=== PATIENT | female | born 1975 | race Caucasian/White ===

== ENCOUNTER 2017-01-01 14:21 | Emergency (ER) | payer MEDICARE, MEDICAID ==
[2017-01-01] MEDS ORDERED: ASPIRIN 81 MG CHEW TABLET As Ordered ONE (14:53)
[2017-01-01 15:26] LABS: BASO % 0.6 % (0.0-1.0); EOS % 0.7 % (0.0-3.0); LARGE UNSTAINED CELL # 0.1 K/mm3 (0.0-0.4); LARGE UNSTAINED CELL % 1.6 % (0.0-4.0); LYMPH # 1.6 K/mm3 (1.5-4.5); LYMPH % 23.3 % (24.0-44.0); MEAN CORPUSCULAR VOLUME 88.1 fl (80.0-96.0); MONO # 0.3 K/mm3 (0.0-0.8); MONO % 4.6 % (0.0-5.0); NEUTROPHILS # 4.8 K/mm3 (1.8-7.7); NEUTROPHILS % 69.2 % (36.0-66.0); PLATELET COUNT, AUTOMATED 235 k/mm3 (150-450); RED CELL DISTRIBUTION WIDTH 12.6 % (11.5-14.5)
--- NOTE | 2017-01-01 15:36 | REP ---
PA and lateral chest: Comparison is 10/08/2012. The lung riley are clear. The cardiac size is normal The tere, mediastinum, and bony thorax are unremarkable. Impression: Negative PA and lateral chest. There is no interval change Signed by Serafin Sanchez MD 01/01/2017 03:26 P
[2017-01-01 15:40] LABS: ANION GAP 9 MEQ/L (8-16); BLOOD UREA NITROGEN 10 MG/DL (7-18); CALCIUM LEVEL 8.9 MG/DL (8.5-10.1); CARBON DIOXIDE LEVEL 26 MEQ/L (21-32); CHLORIDE LEVEL 106 MEQ/L (98-107); CREATININE FOR GFR 0.88 MG/DL (0.55-1.02); GLOMERULAR FILTRATION RATE > 60.0 (>58); GLUCOSE, FASTING 92 MG/DL (70-105); POTASSIUM SERUM 3.8 MEQ/L (3.5-5.1); SODIUM LEVEL 141 MEQ/L (136-145)
[2017-01-01] MEDS ORDERED: ISOVUE-370 76% 100ML VIAL (Q9967) As Ordered ONE (15:52)
--- NOTE | 2017-01-01 16:35 | REP ---
CT pulmonary angiogram: With IV contrast. History: Chest pain. Comparison studies: Comparison is made with today's chest x-ray. Contrast dose: 75 cc's of Isovue [address] technique: Helical scanning is acquired and overlapping 1.5 mm and contiguous 3 mm axial images are reformatted. In addition, a 3-D work station is deployed to generate thick slab maximum intensity projection images in sagittal and coronal imaging projections. CT pulmonary angiographic findings: There is good opacification of the pulmonary arterial tree and there is no CT evidence of pulmonary embolism. Maximum intensity projection images show no filling defect or vessel cutoff sign to suggest a pulmonary thrombus. The thoracic aorta is normal in course and caliber and homogeneous in contrast enhancement. There is no evidence of pleural or pericardial effusion. No hilar or mediastinal mass or adenopathy is observed. The lung riley are clear. There are clips in the gallbladder fossa post cholecystectomy. The visualized upper abdominal structures are otherwise unremarkable. No extrathoracic mass or adenopathy is seen. Bone window settings show mild degenerative changes in the thoracic spine. No bony destructive lesion is seen. Impression: Negative CT pulmonary angiogram. No CT evidence of pulmonary embolus. Signed by Buddy Aranda MD 01/01/2017 05:09 P
[2017-01-01] MEDS ORDERED: MORPHINE 4 MG/ML 1ML SYRINGE As Ordered ONE (17:31)
[2017-01-01] MEDS ORDERED: ONDANSETRON 4MG/2ML VIAL (J2405) As Ordered ONE ×2 (17:31→23:08)
[2017-01-01] MEDS ORDERED: GI COCKTAIL 50ML BTL(HYOSCYAMINE/MAALOX/LIDOCAINE VISCOUS)(1:3:1) As Ordered ONE (18:27)
[2017-01-01] MEDS ORDERED: PANTOPRAZOLE 40MG INJ (PROTONIX) (C9113) As Ordered ONE (18:30)
[2017-01-01 18:47] LABS: ALBUMIN/GLOBULIN RATIO 1.14 (1.00-1.93); ALKALINE PHOSPHATASE 49 U/L (45-117); ALT/SGPT 34 U/L (12-78); AST/SGOT 18 U/L (15-37); BILIRUBIN,DIRECT 0.1 MG/DL (0.0-0.2); BILIRUBIN,TOTAL 0.5 MG/DL (0.2-1.0); TOTAL PROTEIN 7.5 GM/DL (6.4-8.2)
--- NOTE | 2017-01-01 21:51 | EDDOCDS ---
Physician Documentation [facility] Name: Freda To Age: 41 yrs Sex: Female : 1975 Arrival Date: 01/01/2017 Time: 14:21 Bed 12 Private MD: No Pcp Disposition: 01/01/17 21:37 Discharged to Home/Self Care. Impression: Chest pain, unspecified. - Condition is Stable. - Discharge Instructions: Nonspecific Chest Pain. - Medication Reconciliation, Local Pharmacy Hours form. - Follow up: Murali Londono MD; When: 2 - 3 days; Reason: Recheck today's complaints. Follow up: [facility] - Adults; When: 2 - 3 days; Reason: Recheck today's complaints. - Problem is new. - Symptoms have improved. - Notes: You were seen in the ED for chest pain. Bloodwork along with EKG of the heart, chest Xray and CT scan of the chest showed no acute findings. We have discussed the case with Cardiology as well. As you are feeling better you may return home to follow up with your primary doctor as well as Cardiology for further evaluation - please call the offices (see the numbers below) to arrange to be seen in the morning.
Return to the ED for any return of chest pain, trouble breathing, lightheadedness, loss of consciousness or any other concerns. Historical: - Allergies: Vicodin; Codeine Sulfate; - Home Meds: 1. none - PMHx: Lupus; Rheumatoid Arthritis; Fibromyalgia; Hypertension; Asthma; Depression; Bipolar disorder; Anxiety; - PSHx: Cesearean Section; Hysterectomy; Appendectomy; Cholecystectomy; - Social history: Smoking status: Patient uses tobacco products, heavy tobacco smoker. No barriers to communication noted, The patient speaks fluent [place], Speaks appropriately for age. - Family history: No immediate family members are acutely ill. - : The pt / caregiver states he / she is not on anticoagulants. Home medication list is obtained from the patient. - Exposure Risk Screening:: None identified. Vital Signs: 01/01 14:24 BP 157 / 105 RA Sitting (auto/reg); Pulse 89; Resp 18; Temp 98.7(O); Pulse Ox 98% on jrd R/A; Weight 87.09 kg / 192 lbs (R); Height 5 ft. 3 in. (160.02 cm) (R); Pain 8/10; 14:53 Pulse 82 MON; Pulse Ox 97% ; mb9 14:53 BP 133 / 81 (auto/); mb9 15:08 BP 132 / 85 (auto/); mb9 15:09 Pulse 80 MON; Pulse Ox 99% ; mb9 15:22 Pulse 82 MON; Pulse Ox 99% ; mb9 15:23 BP 143 / 91 (auto/); mb9 15:29 Pulse 94 MON; Pulse Ox 98% ; mb9 15:51 BP 140 / 82 (auto/); mb9 15:53 Pulse 80 MON; Pulse Ox 98% ; mb9 15:53 BP 135 / 77 (auto/); mb9 15:58 Pulse 78 MON; Pulse Ox 98% ; lf1 16:08 BP 133 / 87 (auto/); lf1 16:09 Pulse 86 MON; Resp 18; Pulse Ox 99% on R/A; Pain 8/10; lf1 16:23 BP 134 / 86 (auto/); lf1 16:24 Pulse 82 MON; Resp 18; Pulse Ox 99% on R/A; Pain 8/10; lf1 16:30 BP 118 / 68 (auto/); lf1 16:31 Pulse 86 MON; Resp 18; Pulse Ox 97% on R/A; Pain 7/10; lf1 16:38 BP 118 / 67 (auto/); mb9 16:39 Pulse 84 MON; Pulse Ox 96% ; mb9 16:40 Pulse 78 MON; Pulse Ox 96% ; mb9 16:40 BP 125 / 73 (auto/); Pain 7/10; mb9 16:48 BP 114 / 65 (auto/); Pain 6/10; mb9 16:49 Pulse 78 MON; Pulse Ox 97% ; mb9 16:53 BP 121 / 66 (auto/); mb9 16:54 Pulse 76 MON; Pulse Ox 98% ; mb9 17:08 Pulse 82 MON; Pulse Ox 98% ; mb9 17:08 BP 103 / 59 (auto/); mb9 17:23 BP 100 / 56 (auto/); mb9 17:24 Pulse 72 MON; Pulse Ox 98% ; mb9 17:38 Pulse 86 MON; Pulse Ox 97% ; mb9 17:38 BP 111 / 78 (auto/); mb9 17:53 BP 120 / 82 (auto/); mb9 17:54 Pulse 72 MON; Pulse Ox 99% ; mb9 18:08 BP 129 / 73 (auto/); mb9 18:09 Pulse 70 MON; Pulse Ox 94% ; mb9 18:12 Pain 4/10; mb9 18:23 BP 171 / 91 (auto/); kas2 18:23 Pulse 70 MON; Pulse Ox 97% ; kas2 19:02 BP 156 / 71 (auto/); kas2 19:04 Pulse 66 MON; Pulse Ox 98% ; kas2 19:04 Pain 4/10; mb9 19:32 BP 134 / 75 (auto/); kas2 19:32 Pulse 68 MON; Pulse Ox 97% ; kas2 19:40 Resp 18; Temp 97.9(O); kas2 20:02 BP 121 / 63 (auto/); kas2 20:02 Pulse 72 MON; Pulse Ox 96% ; kas2 21:07 BP 129 / 65 (auto/); kas2 21:07 Pulse 64 MON; Pulse Ox 97% ; kas2 21:43 BP 156 / 89 (auto/); kas2 21:43 Pulse 68 MON; Pulse Ox 95% ; kas2 21:48 Resp 20; Temp 97.9; kas2 14:24 Body Mass Index 34.01 (87.09 kg, 160.02 cm) jrd 16:31 After first Nitro - 2nd dose given lf1 MDM: 14:33 ECG WITH READING ER PHYS+CARDIAG ordered. EDMS 14:44 Aspirin Chewable Tablet 324 mg PO once ordered. br1 14:44 Bearingizer/Pulse Ox/q 30 min VS ordered. br1 14:44 IV Saline Lock ordered. br1 14:44 Rhythm Strip to chart ordered. br1 14:44 Undress patient appropriately for examination ordered. br1 14:44 Chest, 2 View (pa\E\lat) Ordered. EDMS 14:44 Basic Metabolic Profile Ordered. EDMS 14:44 CBC with Diff Ordered. EDMS 14:44 Cardiac Injury Profile Ordered. EDMS 14:44 Troponin Ordered. EDMS 14:46 -Influenza A&B Rapid Antigen - Nose Ordered. EDMS 15:47 CBC with Diff Reviewed. br1 15:47 Basic Metabolic Profile Reviewed. br1 15:47 Cardiac Injury Profile Reviewed. br1 15:47 Troponin Reviewed. br1 15:47 -Influenza A&B Rapid Antigen - Nose Reviewed. br1 15:48 CT Chest Angio R/O PE Ordered. EDMS 16:18 Nitrostat 0.4 mg Sublingual every 5 minutes; hold if SBP<90mmHg.Document Pain Score br1 Response to Each Dose x3 ordered. 17:08 morphine 4 mg IVP once ordered. br1 17:08 Financial registration complete. gjb 17:08 Ondansetron 4 mg IVP once ordered. br1 17:21 [facility] Payment Agreement was scanned into [employer] and attached to record. gjb 18:25 GI Cocktail - (Alum-Mag Hydroxide-Simeth 30 ml, Lidocaine 10 ml, Hyoscyamine 10 ml) PO br1 once; Pre-mixed 50mL unit dose ordered. 18:26 Admit to ED Observation status ordered. br1 18:28 pantoprazole 40 mg IV at bolus once ordered. br1 18:28 Repeat EKG (put time details section) ordered. br1 18:28 Redraw CIP &Troponin (put time in details section) ordered. br1 18:34 Redraw CIP &Troponin (put time in details section) complete. lbd 18:34 Repeat EKG (put time details section) complete. lbd 18:37 ECG WITH READING ER PHYS ordered. EDMS 18:38 CARDIAC MARKER PANEL Ordered. EDMS 20:31 Admit to ED Observation status complete. kas2 21:11 Basic Metabolic Profile Reviewed. br1 21:11 Cardiac Injury Profile Reviewed. br1 21:11 Troponin Reviewed. br1 21:11 LIVER PROFILE Reviewed. br1 21:11 LIPASE Reviewed. br1 21:11 CARDIAC MARKER PANEL Reviewed. br1 21:11 Chest, 2 View (pa\E\lat) Reviewed. br1 21:11 CT Chest Angio R/O PE Reviewed. br1 Administered Medications: 15:09 Drug: Aspirin 324 mg [aspirin 81 mg chewable tablet (4 tabs)] Route: PO; mb9 16:24 Drug: Nitrostat 0.4 mg [Nitrostat 0.4 mg sublingual tablet (1 tabs)] Route: Sublingual; lf1 16:32 Drug: Nitrostat 0.4 mg [Nitrostat 0.4 mg sublingual tablet (1 tabs)] Route: Sublingual; lf1 16:43 Drug: Nitrostat 0.4 mg [Nitrostat 0.4 mg sublingual tablet (1 tabs)] Route: Sublingual; mb9 17:39 Drug: morphine 4 mg [morphine 4 mg/mL intravenous cartridge (1 mL)] Route: IVP; Site: mb9 left antecubital; 18:12 Follow up: Pain 4/10 Adult; Response: Pain is decreased mb9 17:39 Drug: Ondansetron 4 mg [ondansetron HCl 2 mg/mL intravenous solution (2 mL)] Route: mb9 IVP; Site: left antecubital; 18:12 Follow up: Response: Nausea is resolved mb9 18:37 Drug: GI Cocktail - (Alum-Mag Hydroxide-Simeth Suspension 225 mg-200 mg-25 mg/5 mL 30 mb9 ml, Lidocaine Liquid 2 % 10 ml, Hyoscyamine Liquid 10 ml) Route: PO; 19:04 Follow up: Pain 4/10 Adult; Response: Pain is decreased mb9 18:37 Drug: pantoprazole 40 mg [pantoprazole 40 mg intravenous solution] Route: IV; Rate: mb9 bolus; Site: left antecubital; Signatures: Dispatcher [employer] EDMS Coco Chung, Production Leader Unit lbd Elba CarvalhoRN RN ck1 Hemanth Hsu MD MD br1 Sanchez OkeefeRN RN mb9 Faith Grissom Kim, RN RN kas2 Mireille Lyons RN lf1 The chart was reviewed and I authenticate all verbal orders and agree with the evaluation and treatment provided.Corrections: (The following items were deleted from the chart) 18:31 18:29 LIVER PROFILE+LAB ordered. EDMS EDMS 18:32 18:29 LIPASE+LAB ordered. EDMS EDMS Attachments: 17:21 [facility] Payment [facility]
--- NOTE | 2017-01-01 21:51 | EDDOCDS ---
Nurse's Notes [facility] Name: Freda To Age: 41 yrs Sex: Female : 1975 Arrival Date: 01/01/2017 Time: 14:21 Bed 12 Private MD: No Pcp Diagnosis: Chest pain, unspecified Presentation: 01/01 14:28 Presenting complaint: Patient states: Chest pain with SOB since last night 2130. Adult ck1 Sepsis Screening: The patient does not have new or worsening altered mentation. Patient's respiratory rate is less than 22. Systolic blood pressure is greater than 100. Patient has a qSOFA score of 0- Negative Sepsis Screen. Suicide/Homicide risk assessment- the patient denies having any suicidal and/or homicidal ideations and does not present with any other emotional, behavioral or mental health complaints. Status: Patient is not a service counselor or dependent. Transition of care: patient was not received from another setting of care. 14:28 Acuity: NATALIA Level 3 ck1 14:28 Method Of Arrival: Walkin/Carried/Asstd ck1 Triage Assessment: 14:31 General: Appears in no apparent distress, comfortable, Behavior is appropriate for age, ck1 cooperative. Pain: Location: chest Pain currently is 8 out of 10 on a pain scale. HIV screening NA for this visit Offered previously. Respiratory: Onset: The symptoms/episode began/occurred yesterday, Respiratory effort is unlabored, Respiratory pattern is regular, symmetrical. GI: Denies nausea. Derm: Skin is intact, is healthy with good turgor, Skin is pink, warm & dry. Musculoskeletal: Circulation, motion, and sensation intact. Historical: - Allergies: Vicodin; Codeine Sulfate; - Home Meds: 1. none - PMHx: Lupus; Rheumatoid Arthritis; Fibromyalgia; Hypertension; Asthma; Depression; Bipolar disorder; Anxiety; - PSHx: Cesearean Section; Hysterectomy; Appendectomy; Cholecystectomy; - Social history: Smoking status: Patient uses tobacco products, heavy tobacco smoker. No barriers to communication noted, The patient speaks fluent Ukrainian, Speaks appropriately for age. - Family history: No immediate family members are acutely ill. - : The pt / caregiver states he / she is not on anticoagulants. Home medication list is obtained from the patient. - Exposure Risk Screening:: None identified. Screenin:48 Screening information is obtained from the patient. Fall risk: No risks identified. kas2 Assistance ADL's: requires no assistance with activities of daily living. Abuse/DV Screen: The patient / caregiver reports he/she is: not in a situation that causes fear, pain or injury. Nutritional screening: No deficits noted. Advance Directives: Currently, there is no health care proxy. There is no active DNR order. There is no living will. There is no Power of Typing Bookkeeper. home support is adequate. Assessment: 15:09 General: Appears in no apparent distress, Behavior is appropriate for age, cooperative. mb9 Cardiovascular: Heart tones S1 S2 present Rhythm is sinus rhythm. Respiratory: Airway is patent Breath sounds are clear bilaterally. 15:55 Reassessment: Patient appears in no apparent distress at this time. General: Appears in mb9 no apparent distress, Behavior is appropriate for age, cooperative. Respiratory: No deficits noted. Airway is patent Respiratory effort is even, unlabored, Breath sounds are clear bilaterally. 16:14 General: Appears obese, uncomfortable, Behavior is cooperative. Pain: Location: chest lf1 Pain currently is 8 out of 10 on a pain scale. Pain does not radiate. Quality of pain is described as aching. Neurological: Level of Consciousness is awake, alert. Respiratory: Respiratory effort is even, unlabored. GI: Denies nausea, vomiting. Derm: Skin is normal. 17:39 Reassessment: Patient appears in no apparent distress at this time. Patient states mb9 symptoms have not improved. Adult Sepsis Screening: The patient does not have new or worsening altered mentation. Patient's respiratory rate is less than 22. Systolic blood pressure is greater than 100. Patient has a qSOFA score of 0- Negative Sepsis Screen. General: Appears in no apparent distress, Behavior is appropriate for age, cooperative. Pain: Location: chest Pain currently is 6 out of 10 on a pain scale. Cardiovascular: Rhythm is sinus rhythm No ectopy. Chest pain is described as Pain is 6 out of 10 on a pain scale. quality is ache is located in anterior chest wall. Respiratory: Airway is patent Respiratory effort is even, unlabored, Breath sounds with wheezes expiratory bilaterally. 17:42 Respiratory: Reports cough that is. mb9 18:17 Pain: Location: epigastric area Pain currently is 6 out of 10 on a pain scale. Quality mb9 of pain is described as burning. Cardiovascular:. 19:16 General: Verbal report given by Ryan Covarrubias RN. Assumed care of patient at this time.. kas2 19:34 General: Appears in no apparent distress, uncomfortable, well nourished, well groomed, kas2 Behavior is appropriate for age, cooperative. Pain: Location: abdomen and epigastric area and chest Pain currently is 4 out of 10 on a pain scale. Pain does not radiate. Quality of pain is described as burning. Neurological: Level of Consciousness is awake, alert, Oriented to person, place, time. Cardiovascular: Capillary refill < 3 seconds Heart tones S1 S2 present Rhythm is sinus rhythm No ectopy. Chest pain is described as Pain is 4 out of 10 on a pain scale. is located in anterior chest wall. Respiratory: No deficits noted. Airway is patent Respiratory effort is even, unlabored, Respiratory pattern is regular, symmetrical, Breath sounds are clear bilaterally. GI: Denies nausea, vomiting. Derm: Skin is intact, Skin is dry, Skin is pink, warm & dry. normal, Skin temperature is warm. Injury Description: No known injury. 21:05 General: Patient laying in bed watching TV. No complaints at this time. Appears kas2 comfortable. VSS. Call springer within reach. Will continue to monitor.. 21:47 General: Appears in no apparent distress, comfortable, Behavior is appropriate for age, kas2 cooperative. Pain: Denies pain. Neurological: Level of Consciousness is awake, alert, Oriented to person, place, time. Cardiovascular: Rhythm is sinus rhythm No ectopy. Respiratory: Airway is patent Respiratory effort is even, unlabored, Respiratory pattern is regular, symmetrical. Derm: Skin is intact, Skin is dry, Skin is pink, warm & dry. Skin temperature is warm. Vital Signs: 14:24 BP 157 / 105 RA Sitting (auto/reg); Pulse 89; Resp 18; Temp 98.7(O); Pulse Ox 98% on jrd R/A; Weight 87.09 kg (R); Height 5 ft. 3 in. (160.02 cm) (R); Pain 8/10; 14:53 Pulse 82 MON; Pulse Ox 97% ; mb9 14:53 BP 133 / 81 (auto/); mb9 15:08 BP 132 / 85 (auto/); mb9 15:09 Pulse 80 MON; Pulse Ox 99% ; mb9 15:22 Pulse 82 MON; Pulse Ox 99% ; mb9 15:23 BP 143 / 91 (auto/); mb9 15:29 Pulse 94 MON; Pulse Ox 98% ; mb9 15:51 BP 140 / 82 (auto/); mb9 15:53 Pulse 80 MON; Pulse Ox 98% ; mb9 15:53 BP 135 / 77 (auto/); mb9 15:58 Pulse 78 MON; Pulse Ox 98% ; lf1 16:08 BP 133 / 87 (auto/); lf1 16:09 Pulse 86 MON; Resp 18; Pulse Ox 99% on R/A; Pain 8/10; lf1 16:23 BP 134 / 86 (auto/); lf1 16:24 Pulse 82 MON; Resp 18; Pulse Ox 99% on R/A; Pain 8/10; lf1 16:30 BP 118 / 68 (auto/); lf1 16:31 Pulse 86 MON; Resp 18; Pulse Ox 97% on R/A; Pain 7/10; lf1 16:38 BP 118 / 67 (auto/); mb9 16:39 Pulse 84 MON; Pulse Ox 96% ; mb9 16:40 Pulse 78 MON; Pulse Ox 96% ; mb9 16:40 BP 125 / 73 (auto/); Pain 7/10; mb9 16:48 BP 114 / 65 (auto/); Pain 6/10; mb9 16:49 Pulse 78 MON; Pulse Ox 97% ; mb9 16:53 BP 121 / 66 (auto/); mb9 16:54 Pulse 76 MON; Pulse Ox 98% ; mb9 17:08 Pulse 82 MON; Pulse Ox 98% ; mb9 17:08 BP 103 / 59 (auto/); mb9 17:23 BP 100 / 56 (auto/); mb9 17:24 Pulse 72 MON; Pulse Ox 98% ; mb9 17:38 Pulse 86 MON; Pulse Ox 97% ; mb9 17:38 BP 111 / 78 (auto/); mb9 17:53 BP 120 / 82 (auto/); mb9 17:54 Pulse 72 MON; Pulse Ox 99% ; mb9 18:08 BP 129 / 73 (auto/); mb9 18:09 Pulse 70 MON; Pulse Ox 94% ; mb9 18:12 Pain 4/10; mb9 18:23 BP 171 / 91 (auto/); kas2 18:23 Pulse 70 MON; Pulse Ox 97% ; kas2 19:02 BP 156 / 71 (auto/); kas2 19:04 Pulse 66 MON; Pulse Ox 98% ; kas2 19:04 Pain 4/10; mb9 19:32 BP 134 / 75 (auto/); kas2 19:32 Pulse 68 MON; Pulse Ox 97% ; kas2 19:40 Resp 18; Temp 97.9(O); kas2 20:02 BP 121 / 63 (auto/); kas2 20:02 Pulse 72 MON; Pulse Ox 96% ; kas2 21:07 BP 129 / 65 (auto/); kas2 21:07 Pulse 64 MON; Pulse Ox 97% ; kas2 21:43 BP 156 / 89 (auto/); kas2 21:43 Pulse 68 MON; Pulse Ox 95% ; kas2 21:48 Resp 20; Temp 97.9; kas2 14:24 Body Mass Index 34.01 (87.09 kg, 160.02 cm) jrd 16:31 After first Nitro - 2nd dose given lf1 Vitals: 14:24 Log In Time: January 01, 2017 at 14:12. jrd 14:25 RN notified that patient meets Red Flag criteria. jrd ED Course: 14:22 Patient visited by Alejandro Guzman PCA. jrd 14:22 Patient moved to Waiting jrd 14:23 No Pcp is Private Physician. jrd 14:25 Patient visited by Alejandro Guzman PCA. jrd 14:26 Patient visited by Alejandro Guzman PCA. jrd 14:29 Triage Initiated ck1 14:32 Patient moved to 12 ck1 14:34 Hemanth Hsu MD is Attending Physician. br1 14:37 EKG done. (by ED staff). Reviewed by Hemanth Hsu MD. cmb 14:41 Pt greeted and oriented to ED. Patient advised of names of staff involved in care, cmb location of call springer, wait times and NPO status. Patient has correct armband on for positive identification. Placed in gown. Bed in low position. Call light in reach. Side rails up X2. corporate physical security supervisor on. Pulse ox on. NIBP on. 14:42 Patient visited by Orquidea Swanson. cmb 14:43 Patient visited by Hemanth Hsu MD. br1 15:08 -Influenza A&B Rapid Antigen - Nose Sent. mb9 15:08 Basic Metabolic Profile Sent. mb9 15:09 CBC with Diff Sent. mb9 15:09 Cardiac Injury Profile Sent. mb9 15:09 Troponin Sent. mb9 15:57 Patient visited by Sanchez Okeefe RN. mb9 16:15 Chest, 2 View (pa\E\lat) Returned. EDMS 16:17 Patient visited by Mireille Lyons RN. lf1 17:16 CT Chest Angio R/O PE Returned. EDMS 17:20 Patient visited by Hemanth Hsu MD. br1 17:21 [facility] Payment Agreement was scanned into [employer] and attached to record. gjb 18:17 Patient visited by Sanchez Okeefe RN. mb9 18:32 Patient visited by Hemanth Hsu MD. br1 18:58 Sowmya Fields RN is Primary Nurse. kas2 19:19 Patient visited by Sowmya Fields RN. kas2 19:40 Patient visited by Sowmya Fields RN. kas2 20:17 Patient visited by Sowmya Fields RN. kas2 20:17 Patient visited by Sowmya Fields RN. kas2 20:31 Patient visited by Sowmya Fields RN. kas2 20:31 CARDIAC MARKER PANEL Sent. kas2 20:31 Labs drawn. (by ED staff). Sent per order to lab. kas2 21:05 Patient visited by Sowmya Fields RN. kas2 21:07 Patient visited by Sowmya Fields RN. kas2 21:32 Patient visited by Hemanth Hsu MD. br1 21:37 Murali Londono MD is Referral Physician. br1 21:37 [facility] is Referral Physician. br1 21:47 Discontinued IV bleeding controlled, pressure dressing applied, No redness/swelling at [facility] site. No procedures done that require assistance. 21:49 The patient / caregiver is instructed regarding the plan of care and ED course. [facility] Administered Medications: 15:09 Drug: Aspirin 324 mg [aspirin 81 mg chewable tablet (4 tabs)] Route: PO; mb9 16:24 Drug: Nitrostat 0.4 mg [Nitrostat 0.4 mg sublingual tablet (1 tabs)] Route: Sublingual; lf1 16:32 Drug: Nitrostat 0.4 mg [Nitrostat 0.4 mg sublingual tablet (1 tabs)] Route: Sublingual; lf1 16:43 Drug: Nitrostat 0.4 mg [Nitrostat 0.4 mg sublingual tablet (1 tabs)] Route: Sublingual; mb9 17:39 Drug: morphine 4 mg [morphine 4 mg/mL intravenous cartridge (1 mL)] Route: IVP; Site: mb9 left antecubital; 18:12 Follow up: Pain 4/10 Adult; Response: Pain is decreased mb9 17:39 Drug: Ondansetron 4 mg [ondansetron HCl 2 mg/mL intravenous solution (2 mL)] Route: mb9 IVP; Site: left antecubital; 18:12 Follow up: Response: Nausea is resolved mb9 18:37 Drug: GI Cocktail - (Alum-Mag Hydroxide-Simeth Suspension 225 mg-200 mg-25 mg/5 mL 30 mb9 ml, Lidocaine Liquid 2 % 10 ml, Hyoscyamine Liquid 10 ml) Route: PO; 19:04 Follow up: Pain 4/10 Adult; Response: Pain is decreased mb9 18:37 Drug: pantoprazole 40 mg [pantoprazole 40 mg intravenous solution] Route: IV; Rate: mb9 bolus; Site: left antecubital; Order Results: Lab Order: Basic Metabolic Profile; SPEC'M 01/01/17 15:06 Test: GLUCOSE, FASTING; Value: 92; Range: 70-105; Units: MG/DL; Status: F Test: BLOOD UREA NITROGEN; Value: 10; Range: 7-18; Units: MG/DL; Status: F Test: CREATININE FOR GFR; Value: 0.88; Range: 0.55-1.02; Units: MG/DL; Status: F Test: GLOMERULAR FILTRATION RATE; Value: > 60.0; Range: >58; Status: F Test: SODIUM LEVEL; Value: 141; Range: 136-145; Units: MEQ/L; Status: F Test: POTASSIUM SERUM; Value: 3.8; Range: 3.5-5.1; Units: MEQ/L; Status: F Test: CHLORIDE LEVEL; Value: 106; Range: 98-107; Units: MEQ/L; Status: F Test: CARBON DIOXIDE LEVEL; Value: 26; Range: 21-32; Units: MEQ/L; Status: F Test: ANION GAP; Value: 9; Range: 8-16; Units: MEQ/L; Status: F Test: CALCIUM LEVEL; Value: 8.9; Range: 8.5-10.1; Units: MG/DL; Status: F Test Note: ; Units are mL/min/1.73 m2 Chronic Kidney Disease Staging per NKF: Stage I & II GFR >=60 Normal to Mildly Decreased Stage III GFR 30-59 Moderately Decreased Stage IV GFR 15-29 Severely Decreased Stage V GFR <15 Very Little GFR Left ESRD GFR <15 on RADIO ELECTRONICS TECHNICIAN Lab Order: CBC with Diff; SPEC'M 01/01/17 15:06 Test: WHITE BLOOD COUNT; Value: 7.0; Range: 4.0-10.0; Units: K/mm3; Status: F Test: RED BLOOD COUNT; Value: 4.83; Range: 4.00-5.40; Units: M/mm3; Status: F Test: HEMOGLOBIN; Value: 14.5; Range: 12.0-16.0; Units: g/dl; Status: F Test: HEMATOCRIT; Value: 42.6; Range: 36.0-47.0; Units: %; Status: F Test: MEAN CORPUSCULAR VOLUME; Value: 88.1; Range: 80.0-96.0; Units: fl; Status: F Test: MEAN CORPUSCULAR HEMOGLOBIN; Value: 30.0; Range: 27.0-33.0; Units: pg; Status: F Test: MEAN CORPUSCULAR HGB CONC; Value: 34.0; Range: 32.0-36.5; Units: g/dl; Status: F Test: RED CELL DISTRIBUTION WIDTH; Value: 12.6; Range: 11.5-14.5; Units: %; Status: F Test: PLATELET COUNT, AUTOMATED; Value: 235; Range: 150-450; Units: k/mm3; Status: F Test: NEUTROPHILS %; Value: 69.2; Range: 36.0-66.0; Abnormal: Above high normal; Units: %; Status: F Test: LYMPH %; Value: 23.3; Range: 24.0-44.0; Abnormal: Below low normal; Units: %; Status: F Test: MONO %; Value: 4.6; Range: 0.0-5.0; Units: %; Status: F Test: EOS %; Value: 0.7; Range: 0.0-3.0; Units: %; Status: F Test: BASO %; Value: 0.6; Range: 0.0-1.0; Units: %; Status: F Test: LARGE UNSTAINED CELL %; Value: 1.6; Range: 0.0-4.0; Units: %; Status: F Test: NEUTROPHILS #; Value: 4.8; Range: 1.8-7.7; Units: K/mm3; Status: F Test: LYMPH #; Value: 1.6; Range: 1.5-4.5; Units: K/mm3; Status: F Test: MONO #; Value: 0.3; Range: 0.0-0.8; Units: K/mm3; Status: F Test: EOS #; Value: 0.0; Range: 0.0-0.50; Units: K/mm3; Status: F Test: BASO #; Value: 0.0; Range: 0.0-0.2; Units: K/mm3; Status: F Test: LARGE UNSTAINED CELL #; Value: 0.1; Range: 0.0-0.4; Units: K/mm3; Status: F Lab Order: Cardiac Injury Profile; SPEC'M 01/01/17 15:06 Test: CPK CREATINE PHOSPHOKINASE; Value: 59; Range: 26-192; Units: U/L; Status: F Test: CK-MB VALUE MASS; Value: 1.0; Range: 0.0-3.6; Units: NG/ML; Status: F Test: MB/CK RELATIVE INDEX; Value: 1.69; Range: < OR =4; Status: F Test Note: ; DIAGNOSIS CRITERIA MMB ng/ml Relative Index (RI) NON-AMI < or = 5 N/A VELASQUEZ ZONE > 5 < or = 4 AMI > 5 > 4 Lab Order: Troponin; SPEC'M 01/01/17 15:06 Test: TROPONIN I; Value: < 0.02; Range: < 0.10; Units: NG/ML; Status: F Test Note: ; Troponin I Reference Interval for Siemens [place] LOCI: 99th Percentile= 0.00-0.045 ng/ml Risk Stratification: <= 0.10 ng/ml Decreased Risk for Adverse Clinical Events. 0.10-1.50 ng/ml Increased Risk for Adverse Clinical Events. Evaluation of additional criterion and/or repeat testing in 2-6 hours is suggested to rule out myocardial damage. >= 1.50 ng/ml Indicative of Myocardial Injury. Lab Order: -Influenza A&B Rapid Antigen - Nose; SPEC'M 01/01/17 15:06 Test: INFLUENZA A RAPID SCR by ICA; Value: INFLUENZA A RESULTS NEGATIVE; Status: F Test: INFLUENZA A RAPID SCR by ICA; Value: Comments:; Status: F Test: INFLUENZA B RAPID SCR by ICA; Value: INFLUENZA B RESULTS NEGATIVE; Status: F Test Note: ; The Influenza test is a direct rapid immunoassay for the qualitative detection of Influenza viral antigen. Cell culture (Viral Culture) testing should be considered to confirm NEGATIVE results and to assist in detecting other viruses that can provide similar clinical symptoms. Please contact the lab within 24 hours [phone] if confirmatory testing is desired. Lab Order: LIVER PROFILE; SPEC'M 01/01/17 15:06 Test: AST/SGOT; Value: 18; Range: 15-37; Units: U/L; Status: F Test: ALT/SGPT; Value: 34; Range: 12-78; Units: U/L; Status: F Test: ALKALINE PHOSPHATASE; Value: 49; Range: 45-117; Units: U/L; Status: F Test: BILIRUBIN,TOTAL; Value: 0.5; Range: 0.2-1.0; Units: MG/DL; Status: F Test: BILIRUBIN,DIRECT; Value: 0.1; Range: 0.0-0.2; Units: MG/DL; Status: F Test: TOTAL PROTEIN; Value: 7.5; Range: 6.4-8.2; Units: GM/DL; Status: F Test: ALBUMIN; Value: 4.0; Range: 3.2-5.2; Units: GM/DL; Status: F Test: ALBUMIN/GLOBULIN RATIO; Value: 1.14; Range: 1.00-1.93; Status: F Lab Order: LIPASE; SPEC'M 01/01/17 15:06 Test: LIPASE; Value: 215; Range: 73-393; Units: U/L; Status: F Lab Order: CARDIAC MARKER PANEL; SPEC'M 01/01/17 20:29 Test: CPK CREATINE PHOSPHOKINASE; Value: 58; Range: 26-192; Units: U/L; Status: F Test: CK-MB VALUE MASS; Value: 1.0; Range: 0.0-3.6; Units: NG/ML; Status: F Test: MB/CK RELATIVE INDEX; Value: 1.72; Range: < OR =4; Status: F Test: TROPONIN I; Value: < 0.02; Range: < 0.10; Units: NG/ML; Status: F Test Note: ; DIAGNOSIS CRITERIA MMB ng/ml Relative Index (RI) NON-AMI < or = 5 N/A VELASQUEZ ZONE > 5 < or = 4 AMI > 5 > 4 Radiology Order: Chest, 2 View (pa\E\lat) Test: Chest, 2 View (pa\E\lat) REASON FOR EXAMINATION: Chest Pain; PA and lateral chest:; ; Comparison is 10/08/2012.; ; The lung riley are clear. The cardiac size is normal; ; The tere, mediastinum, and bony thorax are unremarkable.; ; Impression:; ; Negative PA and lateral chest. There is no interval change; ; ; Signed by; Serafin Sanchez MD 01/01/2017 03:26 P; Radiology Order: CT Chest Angio R/O PE Test: CT Chest Angio R/O PE REASON FOR EXAMINATION: Chest Pain; CT pulmonary angiogram: With IV contrast.; ; History: Chest pain.; ; Comparison studies: Comparison is made with today's chest x-ray.; ; Contrast dose: 75 cc's of Isovue 370 are administered intravenously.; ; CT technique: Helical scanning is acquired and overlapping 1.5 mm and contiguous; 3 mm axial images are reformatted. In addition, a 3-D work station is deployed; to generate thick slab maximum intensity projection images in sagittal and; coronal imaging projections.; ; CT pulmonary angiographic findings: There is good opacification of the pulmonary; arterial tree and there is no CT evidence of pulmonary embolism. Maximum; intensity projection images show no filling defect or vessel cutoff sign to; suggest a pulmonary thrombus. The thoracic aorta is normal in course and caliber; and homogeneous in contrast enhancement.; ; There is no evidence of pleural or pericardial effusion. No hilar or mediastinal; mass or adenopathy is observed. The lung riley are clear. There are clips in; the gallbladder fossa post cholecystectomy. The visualized upper abdominal; structures are otherwise unremarkable. No extrathoracic mass or adenopathy is; seen. Bone window settings show mild degenerative changes in the thoracic spine.; No bony destructive lesion is seen.; ; Impression:; ; Negative CT pulmonary angiogram. No CT evidence of pulmonary embolus.; ; ; Signed by; Buddy Aranda MD 01/01/2017 05:09 P; Outcome: 17:05 Discharge ordered by Provider. br1 21:37 Discharge ordered by Provider. br1 21:49 Discharge Assessment: patient administered narcotics - yes. Pt provided with safe kas2 discharge. The following High Risk Discharge criteria are identified: None. Discharged to home ambulatory, with family. Condition: good Condition: stable Condition: improved. CT Study completed. Property :Personal belongings accompany Pt. 21:50 Patient left the ED. kas2 Signatures: Dispatcher [employer] EDMS Elba CarvalhoRN RN ck1 Mireille LyonsRN RN lf1 Hemanth Hsu MD MD br1 Orquidea Swanson Joseph, PCA PCA jrd Belles, Michael,RN RN mb9 Faith Grissom Kim, RN RN kas2 Corrections: (The following items were deleted from the chart) 18:12 18:11 Pain 4/10 Adult; Response: Pain is decreased mb9 mb9 MTDD
[2017-01-01] MEDS ORDERED: ACET50TAOT PO (23:32)
[2017-01-01] MEDS ORDERED: ALBU17IN INH (23:32)
[2017-01-02] MEDS ORDERED: HEPARIN SOD (PORCINE) 5000 UNITS/ML VIAL As Ordered ONE (09:50)
[2017-01-02] MEDS ORDERED: PANTOPRAZOLE 40MG TAB (PROTONIX) As Ordered ONE (09:50)
[2017-01-02] MEDS ORDERED: NICOTINE 21MG/24HR 1 EA TRANSDERMAL As Ordered ONE (09:50)
--- NOTE | 2017-01-03 08:57 | ECGEPIP ---
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
--- NOTE | 2017-01-03 09:03 | ECGEPIP ---
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
--- NOTE | 2017-01-03 22:50 | EDDOCDS ---
Nurse's Notes [facility] Name: Freda To Age: 41 yrs Sex: Female : 1975 Arrival Date: 01/01/2017 Time: 14:21 Bed 12 Private MD: No Pcp Diagnosis: Chest pain, unspecified Presentation: 01/01 14:28 Presenting complaint: Patient states: Chest pain with SOB since last night 2130. Adult ck1 Sepsis Screening: The patient does not have new or worsening altered mentation. Patient's respiratory rate is less than 22. Systolic blood pressure is greater than 100. Patient has a qSOFA score of 0- Negative Sepsis Screen. Suicide/Homicide risk assessment- the patient denies having any suicidal and/or homicidal ideations and does not present with any other emotional, behavioral or mental health complaints. 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 Transition of care: patient was not received from another setting of care. 14:28 Acuity: NATALIA Level 3 ck1 14:28 Method Of Arrival: Walkin/Carried/Asstd ck1 Triage Assessment: 14:31 General: Appears in no apparent distress, comfortable, Behavior is appropriate for age, ck1 cooperative. Pain: Location: chest Pain currently is 8 out of 10 on a pain scale. HIV screening NA for this visit Offered previously. Respiratory: Onset: The symptoms/episode began/occurred yesterday, Respiratory effort is unlabored, Respiratory pattern is regular, symmetrical. GI: Denies nausea. Derm: Skin is intact, is healthy with good turgor, Skin is pink, warm & dry. Musculoskeletal: Circulation, motion, and sensation intact. Historical: - Allergies: Vicodin; Codeine Sulfate; - Home Meds: 1. none - PMHx: Lupus; Rheumatoid Arthritis; Fibromyalgia; Hypertension; Asthma; Depression; Bipolar disorder; Anxiety; - PSHx: Cesearean Section; Hysterectomy; Appendectomy; Cholecystectomy; - Social history: Smoking status: Patient uses tobacco products, heavy tobacco smoker. No barriers to communication noted, The patient speaks fluent Mongolian, Speaks appropriately for age. - Family history: No immediate family members are acutely ill. - : The pt / caregiver states he / she is not on anticoagulants. Home medication list is obtained from the patient. - Exposure Risk Screening:: None identified. Screenin:48 Screening information is obtained from the patient. Fall risk: No risks identified. kas2 Assistance ADL's: requires no assistance with activities of daily living. Abuse/DV Screen: The patient / caregiver reports he/she is: not in a situation that causes fear, pain or injury. Nutritional screening: No deficits noted. Advance Directives: Currently, there is no health care proxy. There is no active DNR order. There is no living will. There is no Power of Waterproof Bag Sewer. home support is adequate. Assessment: 15:09 General: Appears in no apparent distress, Behavior is appropriate for age, cooperative. mb9 Cardiovascular: Heart tones S1 S2 present Rhythm is sinus rhythm. Respiratory: Airway is patent Breath sounds are clear bilaterally. 15:55 Reassessment: Patient appears in no apparent distress at this time. General: Appears in mb9 no apparent distress, Behavior is appropriate for age, cooperative. Respiratory: No deficits noted. Airway is patent Respiratory effort is even, unlabored, Breath sounds are clear bilaterally. 16:14 General: Appears obese, uncomfortable, Behavior is cooperative. Pain: Location: chest lf1 Pain currently is 8 out of 10 on a pain scale. Pain does not radiate. Quality of pain is described as aching. Neurological: Level of Consciousness is awake, alert. Respiratory: Respiratory effort is even, unlabored. GI: Denies nausea, vomiting. Derm: Skin is normal. 17:39 Reassessment: Patient appears in no apparent distress at this time. Patient states mb9 symptoms have not improved. Adult Sepsis Screening: The patient does not have new or worsening altered mentation. Patient's respiratory rate is less than 22. Systolic blood pressure is greater than 100. Patient has a qSOFA score of 0- Negative Sepsis Screen. General: Appears in no apparent distress, Behavior is appropriate for age, cooperative. Pain: Location: chest Pain currently is 6 out of 10 on a pain scale. Cardiovascular: Rhythm is sinus rhythm No ectopy. Chest pain is described as Pain is 6 out of 10 on a pain scale. quality is ache is located in anterior chest wall. Respiratory: Airway is patent Respiratory effort is even, unlabored, Breath sounds with wheezes expiratory bilaterally. 17:42 Respiratory: Reports cough that is. mb9 18:17 Pain: Location: epigastric area Pain currently is 6 out of 10 on a pain scale. Quality mb9 of pain is described as burning. Cardiovascular:. 19:16 General: Verbal report given by Ryan Covarrubias RN. Assumed care of patient at this time.. kas2 19:34 General: Appears in no apparent distress, uncomfortable, well nourished, well groomed, kas2 Behavior is appropriate for age, cooperative. Pain: Location: abdomen and epigastric area and chest Pain currently is 4 out of 10 on a pain scale. Pain does not radiate. Quality of pain is described as burning. Neurological: Level of Consciousness is awake, alert, Oriented to person, place, time. Cardiovascular: Capillary refill < 3 seconds Heart tones S1 S2 present Rhythm is sinus rhythm No ectopy. Chest pain is described as Pain is 4 out of 10 on a pain scale. is located in anterior chest wall. Respiratory: No deficits noted. Airway is patent Respiratory effort is even, unlabored, Respiratory pattern is regular, symmetrical, Breath sounds are clear bilaterally. GI: Denies nausea, vomiting. Derm: Skin is intact, Skin is dry, Skin is pink, warm & dry. normal, Skin temperature is warm. Injury Description: No known injury. 21:05 General: Patient laying in bed watching TV. No complaints at this time. Appears kas2 comfortable. VSS. Call springer within reach. Will continue to monitor.. 21:47 General: Appears in no apparent distress, comfortable, Behavior is appropriate for age, kas2 cooperative. Pain: Denies pain. Neurological: Level of Consciousness is awake, alert, Oriented to person, place, time. Cardiovascular: Rhythm is sinus rhythm No ectopy. Respiratory: Airway is patent Respiratory effort is even, unlabored, Respiratory pattern is regular, symmetrical. Derm: Skin is intact, Skin is dry, Skin is pink, warm & dry. Skin temperature is warm. Vital Signs: 14:24 BP 157 / 105 RA Sitting (auto/reg); Pulse 89; Resp 18; Temp 98.7(O); Pulse Ox 98% on jrd R/A; Weight 87.09 kg (R); Height 5 ft. 3 in. (160.02 cm) (R); Pain 8/10; 14:53 Pulse 82 MON; Pulse Ox 97% ; mb9 14:53 BP 133 / 81 (auto/); mb9 15:08 BP 132 / 85 (auto/); mb9 15:09 Pulse 80 MON; Pulse Ox 99% ; mb9 15:22 Pulse 82 MON; Pulse Ox 99% ; mb9 15:23 BP 143 / 91 (auto/); mb9 15:29 Pulse 94 MON; Pulse Ox 98% ; mb9 15:51 BP 140 / 82 (auto/); mb9 15:53 Pulse 80 MON; Pulse Ox 98% ; mb9 15:53 BP 135 / 77 (auto/); mb9 15:58 Pulse 78 MON; Pulse Ox 98% ; lf1 16:08 BP 133 / 87 (auto/); lf1 16:09 Pulse 86 MON; Resp 18; Pulse Ox 99% on R/A; Pain 8/10; lf1 16:23 BP 134 / 86 (auto/); lf1 16:24 Pulse 82 MON; Resp 18; Pulse Ox 99% on R/A; Pain 8/10; lf1 16:30 BP 118 / 68 (auto/); lf1 16:31 Pulse 86 MON; Resp 18; Pulse Ox 97% on R/A; Pain 7/10; lf1 16:38 BP 118 / 67 (auto/); mb9 16:39 Pulse 84 MON; Pulse Ox 96% ; mb9 16:40 Pulse 78 MON; Pulse Ox 96% ; mb9 16:40 BP 125 / 73 (auto/); Pain 7/10; mb9 16:48 BP 114 / 65 (auto/); Pain 6/10; mb9 16:49 Pulse 78 MON; Pulse Ox 97% ; mb9 16:53 BP 121 / 66 (auto/); mb9 16:54 Pulse 76 MON; Pulse Ox 98% ; mb9 17:08 Pulse 82 MON; Pulse Ox 98% ; mb9 17:08 BP 103 / 59 (auto/); mb9 17:23 BP 100 / 56 (auto/); mb9 17:24 Pulse 72 MON; Pulse Ox 98% ; mb9 17:38 Pulse 86 MON; Pulse Ox 97% ; mb9 17:38 BP 111 / 78 (auto/); mb9 17:53 BP 120 / 82 (auto/); mb9 17:54 Pulse 72 MON; Pulse Ox 99% ; mb9 18:08 BP 129 / 73 (auto/); mb9 18:09 Pulse 70 MON; Pulse Ox 94% ; mb9 18:12 Pain 4/10; mb9 18:23 BP 171 / 91 (auto/); kas2 18:23 Pulse 70 MON; Pulse Ox 97% ; kas2 19:02 BP 156 / 71 (auto/); kas2 19:04 Pulse 66 MON; Pulse Ox 98% ; kas2 19:04 Pain 4/10; mb9 19:32 BP 134 / 75 (auto/); kas2 19:32 Pulse 68 MON; Pulse Ox 97% ; kas2 19:40 Resp 18; Temp 97.9(O); kas2 20:02 BP 121 / 63 (auto/); kas2 20:02 Pulse 72 MON; Pulse Ox 96% ; kas2 21:07 BP 129 / 65 (auto/); kas2 21:07 Pulse 64 MON; Pulse Ox 97% ; kas2 21:43 BP 156 / 89 (auto/); kas2 21:43 Pulse 68 MON; Pulse Ox 95% ; kas2 21:48 Resp 20; Temp 97.9; kas2 14:24 Body Mass Index 34.01 (87.09 kg, 160.02 cm) jrd 16:31 After first Nitro - 2nd dose given lf1 Vitals: 14:24 Log In Time: January 01, 2017 at 14:12. jrd 14:25 RN notified that patient meets Red Flag criteria. jrd ED Course: 14:22 Patient visited by Alejandro Guzman PCA. jrd 14:22 Patient moved to Waiting jrd 14:23 No Pcp is Private Physician. jrd 14:25 Patient visited by Alejandro Guzman PCA. jrd 14:26 Patient visited by Alejandro Guzman PCA. jrd 14:29 Triage Initiated ck1 14:32 Patient moved to 12 ck1 14:34 Charles Hsu MD is Attending Physician. br1 14:37 EKG done. (by ED staff). Reviewed by Charles Hsu MD. cmb 14:41 Pt greeted and oriented to ED. Patient advised of names of staff involved in care, cmb location of call springer, wait times and NPO status. Patient has correct armband on for positive identification. Placed in gown. Bed in low position. Call light in reach. Side rails up X2. nuclear monitoring technician on. Pulse ox on. NIBP on. 14:42 Patient visited by Orquidea Swanson. cmb 14:43 Patient visited by Charles Hsu MD. br1 15:08 -Influenza A&B Rapid Antigen - Nose Sent. mb9 15:08 Basic Metabolic Profile Sent. mb9 15:09 CBC with Diff Sent. mb9 15:09 Cardiac Injury Profile Sent. mb9 15:09 Troponin Sent. mb9 15:57 Patient visited by Sanchez Okeefe RN. mb9 16:15 Chest, 2 View (pa\E\lat) Returned. EDMS 16:17 Patient visited by Mireille Lyons RN. lf1 17:16 CT Chest Angio R/O PE Returned. EDMS 17:20 Patient visited by Charles Hsu MD. br1 17:21 [facility] Payment Agreement was scanned into [employer] and attached to record. gjb 18:17 Patient visited by Sanchez Okeefe RN. mb9 18:32 Patient visited by Charles Hsu MD. br1 18:58 Sowmya Fields RN is Primary Nurse. kas2 19:19 Patient visited by Sowmya Fields RN. kas2 19:40 Patient visited by Sowmya Fields RN. kas2 20:17 Patient visited by Sowmya Fields RN. kas2 20:17 Patient visited by Sowmya Fields RN. kas2 20:31 Patient visited by Sowmya Fields RN. kas2 20:31 CARDIAC MARKER PANEL Sent. kas2 20:31 Labs drawn. (by ED staff). Sent per order to lab. kas2 21:05 Patient visited by Sowmya Fields RN. kas2 21:07 Patient visited by Sowmya Fields RN. kas2 21:32 Patient visited by Charles Hsu MD. br1 21:37 Murali Londono MD is Referral Physician. br1 21:37 [facility] is Referral Physician. br1 21:47 Discontinued IV bleeding controlled, pressure dressing applied, No redness/swelling at [facility] site. No procedures done that require assistance. 21:49 The patient / caregiver is instructed regarding the plan of care and ED course. [facility] 02 10:16 T-Sheet-- Draft Copy was scanned into [employer] and attached to record. gb 10:17 ECG/EKG was scanned into [employer] and attached to record. gb 10:17 Radiology Report was scanned into [employer] and attached to record. gb 10:36 T-Sheet-- Draft Copy was scanned into [employer] and attached to record. gb 10:37 ECG/EKG was scanned into [employer] and attached to record. gb 10:37 Radiology Report was scanned into [employer] and attached to record. gb 01/03 09:17 EKG-ADULT Returned. EDMS 09:17 ECG WITH READING ER PHYS Returned. EDMS Administered Medications: 01/01 15:09 Drug: Aspirin 324 mg [aspirin 81 mg chewable tablet (4 tabs)] Route: PO; mb9 16:24 Drug: Nitrostat 0.4 mg [Nitrostat 0.4 mg sublingual tablet (1 tabs)] Route: Sublingual; lf1 16:32 Drug: Nitrostat 0.4 mg [Nitrostat 0.4 mg sublingual tablet (1 tabs)] Route: Sublingual; lf1 16:43 Drug: Nitrostat 0.4 mg [Nitrostat 0.4 mg sublingual tablet (1 tabs)] Route: Sublingual; mb9 17:39 Drug: morphine 4 mg [morphine 4 mg/mL intravenous cartridge (1 mL)] Route: IVP; Site: mb9 left antecubital; 18:12 Follow up: Pain 4/10 Adult; Response: Pain is decreased mb9 17:39 Drug: Ondansetron 4 mg [ondansetron HCl 2 mg/mL intravenous solution (2 mL)] Route: mb9 IVP; Site: left antecubital; 18:12 Follow up: Response: Nausea is resolved mb9 18:37 Drug: GI Cocktail - (Alum-Mag Hydroxide-Simeth Suspension 225 mg-200 mg-25 mg/5 mL 30 mb9 ml, Lidocaine Liquid 2 % 10 ml, Hyoscyamine Liquid 10 ml) Route: PO; 19:04 Follow up: Pain 4/10 Adult; Response: Pain is decreased mb9 18:37 Drug: pantoprazole 40 mg [pantoprazole 40 mg intravenous solution] Route: IV; Rate: mb9 bolus; Site: left antecubital; Order Results: Lab Order: Basic Metabolic Profile; SPEC'M 01/01/17 15:06 Test: GLUCOSE, FASTING; Value: 92; Range: 70-105; Units: MG/DL; Status: F Test: BLOOD UREA NITROGEN; Value: 10; Range: 7-18; Units: MG/DL; Status: F Test: CREATININE FOR GFR; Value: 0.88; Range: 0.55-1.02; Units: MG/DL; Status: F Test: GLOMERULAR FILTRATION RATE; Value: > 60.0; Range: >58; Status: F Test: SODIUM LEVEL; Value: 141; Range: 136-145; Units: MEQ/L; Status: F Test: POTASSIUM SERUM; Value: 3.8; Range: 3.5-5.1; Units: MEQ/L; Status: F Test: CHLORIDE LEVEL; Value: 106; Range: 98-107; Units: MEQ/L; Status: F Test: CARBON DIOXIDE LEVEL; Value: 26; Range: 21-32; Units: MEQ/L; Status: F Test: ANION GAP; Value: 9; Range: 8-16; Units: MEQ/L; Status: F Test: CALCIUM LEVEL; Value: 8.9; Range: 8.5-10.1; Units: MG/DL; Status: F Test Note: ; Units are mL/min/1.73 m2 Chronic Kidney Disease Staging per NKF: Stage I & II GFR >=60 Normal to Mildly Decreased Stage III GFR 30-59 Moderately Decreased Stage IV GFR 15-29 Severely Decreased Stage V GFR <15 Very Little GFR Left ESRD GFR <15 on PATIENT COORDINATOR Lab Order: CBC with Diff; SPEC'M 01/01/17 15:06 Test: WHITE BLOOD COUNT; Value: 7.0; Range: 4.0-10.0; Units: K/mm3; Status: F Test: RED BLOOD COUNT; Value: 4.83; Range: 4.00-5.40; Units: M/mm3; Status: F Test: HEMOGLOBIN; Value: 14.5; Range: 12.0-16.0; Units: g/dl; Status: F Test: HEMATOCRIT; Value: 42.6; Range: 36.0-47.0; Units: %; Status: F Test: MEAN CORPUSCULAR VOLUME; Value: 88.1; Range: 80.0-96.0; Units: fl; Status: F Test: MEAN CORPUSCULAR HEMOGLOBIN; Value: 30.0; Range: 27.0-33.0; Units: pg; Status: F Test: MEAN CORPUSCULAR HGB CONC; Value: 34.0; Range: 32.0-36.5; Units: g/dl; Status: F Test: RED CELL DISTRIBUTION WIDTH; Value: 12.6; Range: 11.5-14.5; Units: %; Status: F Test: PLATELET COUNT, AUTOMATED; Value: 235; Range: 150-450; Units: k/mm3; Status: F Test: NEUTROPHILS %; Value: 69.2; Range: 36.0-66.0; Abnormal: Above high normal; Units: %; Status: F Test: LYMPH %; Value: 23.3; Range: 24.0-44.0; Abnormal: Below low normal; Units: %; Status: F Test: MONO %; Value: 4.6; Range: 0.0-5.0; Units: %; Status: F Test: EOS %; Value: 0.7; Range: 0.0-3.0; Units: %; Status: F Test: BASO %; Value: 0.6; Range: 0.0-1.0; Units: %; Status: F Test: LARGE UNSTAINED CELL %; Value: 1.6; Range: 0.0-4.0; Units: %; Status: F Test: NEUTROPHILS #; Value: 4.8; Range: 1.8-7.7; Units: K/mm3; Status: F Test: LYMPH #; Value: 1.6; Range: 1.5-4.5; Units: K/mm3; Status: F Test: MONO #; Value: 0.3; Range: 0.0-0.8; Units: K/mm3; Status: F Test: EOS #; Value: 0.0; Range: 0.0-0.50; Units: K/mm3; Status: F Test: BASO #; Value: 0.0; Range: 0.0-0.2; Units: K/mm3; Status: F Test: LARGE UNSTAINED CELL #; Value: 0.1; Range: 0.0-0.4; Units: K/mm3; Status: F Lab Order: Cardiac Injury Profile; SPEC'M 01/01/17 15:06 Test: CPK CREATINE PHOSPHOKINASE; Value: 59; Range: 26-192; Units: U/L; Status: F Test: CK-MB VALUE MASS; Value: 1.0; Range: 0.0-3.6; Units: NG/ML; Status: F Test: MB/CK RELATIVE INDEX; Value: 1.69; Range: < OR =4; Status: F Test Note: ; DIAGNOSIS CRITERIA MMB ng/ml Relative Index (RI) NON-AMI < or = 5 N/A VELASQUEZ ZONE > 5 < or = 4 AMI > 5 > 4 Lab Order: Troponin; SPEC'M 01/01/17 15:06 Test: TROPONIN I; Value: < 0.02; Range: < 0.10; Units: NG/ML; Status: F Test Note: ; Troponin I Reference Interval for [employer] LOCI: 99th Percentile= 0.00-0.045 ng/ml Risk Stratification: <= 0.10 ng/ml Decreased Risk for Adverse Clinical Events. 0.10-1.50 ng/ml Increased Risk for Adverse Clinical Events. Evaluation of additional criterion and/or repeat testing in 2-6 hours is suggested to rule out myocardial damage. >= 1.50 ng/ml Indicative of Myocardial Injury. Lab Order: -Influenza A&B Rapid Antigen - Nose; SPEC'M 01/01/17 15:06 Test: INFLUENZA A RAPID SCR by ICA; Value: INFLUENZA A RESULTS NEGATIVE; Status: F Test: INFLUENZA A RAPID SCR by ICA; Value: Comments:; Status: F Test: INFLUENZA B RAPID SCR by ICA; Value: INFLUENZA B RESULTS NEGATIVE; Status: F Test Note: ; The Influenza test is a direct rapid immunoassay for the qualitative detection of Influenza viral antigen. Cell culture (Viral Culture) testing should be considered to confirm NEGATIVE results and to assist in detecting other viruses that can provide similar clinical symptoms. Please contact the lab within 24 hours ([phone] if confirmatory testing is desired. Lab Order: LIVER PROFILE; SPEC'M 01/01/17 15:06 Test: AST/SGOT; Value: 18; Range: 15-37; Units: U/L; Status: F Test: ALT/SGPT; Value: 34; Range: 12-78; Units: U/L; Status: F Test: ALKALINE PHOSPHATASE; Value: 49; Range: 45-117; Units: U/L; Status: F Test: BILIRUBIN,TOTAL; Value: 0.5; Range: 0.2-1.0; Units: MG/DL; Status: F Test: BILIRUBIN,DIRECT; Value: 0.1; Range: 0.0-0.2; Units: MG/DL; Status: F Test: TOTAL PROTEIN; Value: 7.5; Range: 6.4-8.2; Units: GM/DL; Status: F Test: ALBUMIN; Value: 4.0; Range: 3.2-5.2; Units: GM/DL; Status: F Test: ALBUMIN/GLOBULIN RATIO; Value: 1.14; Range: 1.00-1.93; Status: F Lab Order: LIPASE; SPEC' 01/01/17 15:06 Test: LIPASE; Value: 215; Range: 73-393; Units: U/L; Status: F Lab Order: CARDIAC MARKER PANEL; [facility]' 01/01/17 20:29 Test: CPK CREATINE PHOSPHOKINASE; Value: 58; Range: 26-192; Units: U/L; Status: F Test: CK-MB VALUE MASS; Value: 1.0; Range: 0.0-3.6; Units: NG/ML; Status: F Test: MB/CK RELATIVE INDEX; Value: 1.72; Range: < OR =4; Status: F Test: TROPONIN I; Value: < 0.02; Range: < 0.10; Units: NG/ML; Status: F Test Note: ; DIAGNOSIS CRITERIA MMB ng/ml Relative Index (RI) NON-AMI < or = 5 N/A VELASQUEZ ZONE > 5 < or = 4 AMI > 5 > 4 Radiology Order: EKG-ADULT Test: EKG-ADULT REASON FOR EXAMINATION: Chest Pain; Stationary ECG Study; [facility] - ED; ; Test Date: 2017-01-01; Pat Name: FREDA [place] Department:; Room: -; Gender: F Forge Tender: nicole; : 1975 Requested By: Darren Meyers; Order Number: [id number] Reading MD: Julia Calhoun; Measurements; Intervals [place]; Rate: 80 P: 26; SD: 135 QRS: 60; QRSD: 76 T: 18; QT: 376; QTc: 434; Interpretive Statements; SINUS RHYTHM; NSTTW ABNORMALITY; NO PRIOR FOR COMPARISON; Electronically Signed On 01-03-2017 8:57:32 EST by Julia Calhoun; Radiology Order: Chest, 2 View (pa\E\lat) Test: Chest, 2 View (pa\E\lat) REASON FOR EXAMINATION: Chest Pain; PA and lateral chest:; ; Comparison is 10/08/2012.; ; The lung riley are clear. The cardiac size is normal; ; The tere, mediastinum, and bony thorax are unremarkable.; ; Impression:; ; Negative PA and lateral chest. There is no interval change; ; ; Signed by; Serafin Sanchez MD 01/01/2017 03:26 P; Radiology Order: CT Chest Angio R/O PE Test: CT Chest Angio R/O PE REASON FOR EXAMINATION: Chest Pain; CT pulmonary angiogram: With IV contrast.; ; History: Chest pain.; ; Comparison studies: Comparison is made with today's chest x-ray.; ; Contrast dose: 75 cc's of Isovue 370 are administered intravenously.; ; CT technique: Helical scanning is acquired and overlapping 1.5 mm and contiguous; 3 mm axial images are reformatted. In addition, a 3-D work station is deployed; to generate thick slab maximum intensity projection images in sagittal and; coronal imaging projections.; ; CT pulmonary angiographic findings: There is good opacification of the pulmonary; arterial tree and there is no CT evidence of pulmonary embolism. Maximum; intensity projection images show no filling defect or vessel cutoff sign to; suggest a pulmonary thrombus. The thoracic aorta is normal in course and caliber; and homogeneous in contrast enhancement.; ; There is no evidence of pleural or pericardial effusion. No hilar or mediastinal; mass or adenopathy is observed. The lung riley are clear. There are clips in; the gallbladder fossa post cholecystectomy. The visualized upper abdominal; structures are otherwise unremarkable. No extrathoracic mass or adenopathy is; seen. Bone window settings show mild degenerative changes in the thoracic spine.; No bony destructive lesion is seen.; ; Impression:; ; Negative CT pulmonary angiogram. No CT evidence of pulmonary embolus.; ; ; Signed by; Buddy Aranda MD 01/01/2017 05:09 P; Radiology Order: ECG WITH READING ER PHYS Test: ECG WITH READING ER PHYS REASON FOR EXAMINATION: CHEST PAIN (REPEAT EKG AT 2030); Stationary ECG Study; [facility] - ED; ; Test Date: 2017-01-01; Pat Name: FREDA [place] Department:; Room: -; Gender: F Forge Tender: srinivas; : 1975 Requested By: CHARLES Guajardo; Order Number: [id number] Reading MD: Julia Calhoun; Measurements; Intervals [place]; Rate: 76 P: 59; SD: 140 QRS: 68; QRSD: 79 T: 38; QT: 380; QTc: 428; Interpretive Statements; SINUS RHYTHM WITH SINUS ARRHYTHMIA; NSTTW ABNORMALITY; SIMILAR 01/01/17; Electronically Signed On 01-03-2017 9:03:13 EST by Julia Calhoun; Outcome: 17:05 Discharge ordered by Provider. br1 21:37 Discharge ordered by Provider. br1 21:49 Discharge Assessment: patient administered narcotics - yes. Pt provided with safe kas2 discharge. The following High Risk Discharge criteria are identified: None. Discharged to home ambulatory, with family. Condition: good Condition: stable Condition: improved. CT Study completed. Property :Personal belongings accompany Pt. 21:50 Patient left the ED. kas2 Signatures: Dispatcher [employer] EDMS Neli Ugalde, Elba JuanRN RN ck1 Mireille Lyons RN RN lf1 Charles Hsu MD MD br1 Orquidea Swanson Joseph, PCA HEATING TECHNICIAN Sanchez HurdRN RN mb9 Faith Grissom Kim, RN RN kas2 Corrections: (The following items were deleted from the chart) 18:12 18:11 Pain 4/10 Adult; Response: Pain is decreased mb9 mb9 Chart Complete MTDD
--- NOTE | 2017-01-03 22:50 | EDDOCDS ---
Physician Documentation [facility] Name: Freda To Age: 41 yrs Sex: Female : 1975 Arrival Date: 01/01/2017 Time: 14:21 Bed 12 Private MD: No Pcp Disposition: 01/01/17 21:37 Discharged to Home/Self Care. Impression: Chest pain, unspecified. - Condition is Stable. - Discharge Instructions: Nonspecific Chest Pain. - Medication Reconciliation, Local Pharmacy Hours form. - Follow up: Murali Londono MD; When: 2 - 3 days; Reason: Recheck today's complaints. Follow up: [facility] - Adults; When: 2 - 3 days; Reason: Recheck today's complaints. - Problem is new. - Symptoms have improved. - Notes: You were seen in the ED for chest pain. Bloodwork along with EKG of the heart, chest Xray and CT scan of the chest showed no acute findings. We have discussed the case with Cardiology as well. As you are feeling better you may return home to follow up with your primary doctor as well as Cardiology for further evaluation - please call the offices (see the numbers below) to arrange to be seen in the morning.
Return to the ED for any return of chest pain, trouble breathing, lightheadedness, loss of consciousness or any other concerns. Historical: - Allergies: Vicodin; Codeine Sulfate; - Home Meds: 1. none - PMHx: Lupus; Rheumatoid Arthritis; Fibromyalgia; Hypertension; Asthma; Depression; Bipolar disorder; Anxiety; - PSHx: Cesearean Section; Hysterectomy; Appendectomy; Cholecystectomy; - Social history: Smoking status: Patient uses tobacco products, heavy tobacco smoker. No barriers to communication noted, The patient speaks fluent Russian, Speaks appropriately for age. - Family history: No immediate family members are acutely ill. - : The pt / caregiver states he / she is not on anticoagulants. Home medication list is obtained from the patient. - Exposure Risk Screening:: None identified. Vital Signs: 01/01 14:24 BP 157 / 105 RA Sitting (auto/reg); Pulse 89; Resp 18; Temp 98.7(O); Pulse Ox 98% on jrd R/A; Weight 87.09 kg / 192 lbs (R); Height 5 ft. 3 in. (160.02 cm) (R); Pain 8/10; 14:53 Pulse 82 MON; Pulse Ox 97% ; mb9 14:53 BP 133 / 81 (auto/); mb9 15:08 BP 132 / 85 (auto/); mb9 15:09 Pulse 80 MON; Pulse Ox 99% ; mb9 15:22 Pulse 82 MON; Pulse Ox 99% ; mb9 15:23 BP 143 / 91 (auto/); mb9 15:29 Pulse 94 MON; Pulse Ox 98% ; mb9 15:51 BP 140 / 82 (auto/); mb9 15:53 Pulse 80 MON; Pulse Ox 98% ; mb9 15:53 BP 135 / 77 (auto/); mb9 15:58 Pulse 78 MON; Pulse Ox 98% ; lf1 16:08 BP 133 / 87 (auto/); lf1 16:09 Pulse 86 MON; Resp 18; Pulse Ox 99% on R/A; Pain 8/10; lf1 16:23 BP 134 / 86 (auto/); lf1 16:24 Pulse 82 MON; Resp 18; Pulse Ox 99% on R/A; Pain 8/10; lf1 16:30 BP 118 / 68 (auto/); lf1 16:31 Pulse 86 MON; Resp 18; Pulse Ox 97% on R/A; Pain 7/10; lf1 16:38 BP 118 / 67 (auto/); mb9 16:39 Pulse 84 MON; Pulse Ox 96% ; mb9 16:40 Pulse 78 MON; Pulse Ox 96% ; mb9 16:40 BP 125 / 73 (auto/); Pain 7/10; mb9 16:48 BP 114 / 65 (auto/); Pain 6/10; mb9 16:49 Pulse 78 MON; Pulse Ox 97% ; mb9 16:53 BP 121 / 66 (auto/); mb9 16:54 Pulse 76 MON; Pulse Ox 98% ; mb9 17:08 Pulse 82 MON; Pulse Ox 98% ; mb9 17:08 BP 103 / 59 (auto/); mb9 17:23 BP 100 / 56 (auto/); mb9 17:24 Pulse 72 MON; Pulse Ox 98% ; mb9 17:38 Pulse 86 MON; Pulse Ox 97% ; mb9 17:38 BP 111 / 78 (auto/); mb9 17:53 BP 120 / 82 (auto/); mb9 17:54 Pulse 72 MON; Pulse Ox 99% ; mb9 18:08 BP 129 / 73 (auto/); mb9 18:09 Pulse 70 MON; Pulse Ox 94% ; mb9 18:12 Pain 4/10; mb9 18:23 BP 171 / 91 (auto/); kas2 18:23 Pulse 70 MON; Pulse Ox 97% ; kas2 19:02 BP 156 / 71 (auto/); kas2 19:04 Pulse 66 MON; Pulse Ox 98% ; kas2 19:04 Pain 4/10; mb9 19:32 BP 134 / 75 (auto/); kas2 19:32 Pulse 68 MON; Pulse Ox 97% ; kas2 19:40 Resp 18; Temp 97.9(O); kas2 20:02 BP 121 / 63 (auto/); kas2 20:02 Pulse 72 MON; Pulse Ox 96% ; kas2 21:07 BP 129 / 65 (auto/); kas2 21:07 Pulse 64 MON; Pulse Ox 97% ; kas2 21:43 BP 156 / 89 (auto/); kas2 21:43 Pulse 68 MON; Pulse Ox 95% ; kas2 21:48 Resp 20; Temp 97.9; kas2 14:24 Body Mass Index 34.01 (87.09 kg, 160.02 cm) jrd 16:31 After first Nitro - 2nd dose given lf1 MDM: 14:33 ECG WITH READING ER PHYS+CARDIAG ordered. EDMS 14:44 Aspirin Chewable Tablet 324 mg PO once ordered. br1 14:44 Starchmaker/Pulse Ox/q 30 min VS ordered. br1 14:44 IV Saline Lock ordered. br1 14:44 Rhythm Strip to chart ordered. br1 14:44 Undress patient appropriately for examination ordered. br1 14:44 Chest, 2 View (pa\E\lat) Ordered. EDMS 14:44 Basic Metabolic Profile Ordered. EDMS 14:44 CBC with Diff Ordered. EDMS 14:44 Cardiac Injury Profile Ordered. EDMS 14:44 Troponin Ordered. EDMS 14:46 -Influenza A&B Rapid Antigen - Nose Ordered. EDMS 15:47 CBC with Diff Reviewed. br1 15:47 Basic Metabolic Profile Reviewed. br1 15:47 Cardiac Injury Profile Reviewed. br1 15:47 Troponin Reviewed. br1 15:47 -Influenza A&B Rapid Antigen - Nose Reviewed. br1 15:48 CT Chest Angio R/O PE Ordered. EDMS 16:18 Nitrostat 0.4 mg Sublingual every 5 minutes; hold if SBP<90mmHg.Document Pain Score br1 Response to Each Dose x3 ordered. 17:08 morphine 4 mg IVP once ordered. br1 17:08 Financial registration complete. gjb 17:08 Ondansetron 4 mg IVP once ordered. br1 17:21 [facility] was scanned into [employer] and attached to record. gjb 18:25 GI Cocktail - (Alum-Mag Hydroxide-Simeth 30 ml, Lidocaine 10 ml, Hyoscyamine 10 ml) PO br1 once; Pre-mixed 50mL unit dose ordered. 18:26 Admit to ED Observation status ordered. br1 18:28 pantoprazole 40 mg IV at bolus once ordered. br1 18:28 Repeat EKG (put time details section) ordered. br1 18:28 Redraw CIP &Troponin (put time in details section) ordered. br1 18:34 Redraw CIP &Troponin (put time in details section) complete. lbd 18:34 Repeat EKG (put time details section) complete. lbd 18:37 ECG WITH READING ER PHYS ordered. EDMS 18:38 CARDIAC MARKER PANEL Ordered. EDMS 20:31 Admit to ED Observation status complete. kas2 21:11 Basic Metabolic Profile Reviewed. br1 21:11 Cardiac Injury Profile Reviewed. br1 21:11 Troponin Reviewed. br1 21:11 LIVER PROFILE Reviewed. br1 21:11 LIPASE Reviewed. br1 21:11 CARDIAC MARKER PANEL Reviewed. br1 21:11 Chest, 2 View (pa\E\lat) Reviewed. br1 21:11 CT Chest Angio R/O PE Reviewed. br1 0202 10:16 T-Sheet-- Draft Copy was scanned into [employer] and attached to record. gb 10:17 ECG/EKG was scanned into [employer] and attached to record. gb 10:17 Radiology Report was scanned into [employer]HOST and attached to record. gb 10:36 T-Sheet-- Draft Copy was scanned into [employer] and attached to record. gb 10:37 ECG/EKG was scanned into [employer] and attached to record. gb 10:37 Radiology Report was scanned into [employer] and attached to record. gb Administered Medications: 01/01 15:09 Drug: Aspirin 324 mg [aspirin 81 mg chewable tablet (4 tabs)] Route: PO; mb9 16:24 Drug: Nitrostat 0.4 mg [Nitrostat 0.4 mg sublingual tablet (1 tabs)] Route: Sublingual; lf1 16:32 Drug: Nitrostat 0.4 mg [Nitrostat 0.4 mg sublingual tablet (1 tabs)] Route: Sublingual; lf1 16:43 Drug: Nitrostat 0.4 mg [Nitrostat 0.4 mg sublingual tablet (1 tabs)] Route: Sublingual; mb9 17:39 Drug: morphine 4 mg [morphine 4 mg/mL intravenous cartridge (1 mL)] Route: IVP; Site: mb9 left antecubital; 18:12 Follow up: Pain 4/10 Adult; Response: Pain is decreased mb9 17:39 Drug: Ondansetron 4 mg [ondansetron HCl 2 mg/mL intravenous solution (2 mL)] Route: mb9 IVP; Site: left antecubital; 18:12 Follow up: Response: Nausea is resolved mb9 18:37 Drug: GI Cocktail - (Alum-Mag Hydroxide-Simeth Suspension 225 mg-200 mg-25 mg/5 mL 30 mb9 ml, Lidocaine Liquid 2 % 10 ml, Hyoscyamine Liquid 10 ml) Route: PO; 19:04 Follow up: Pain 4/10 Adult; Response: Pain is decreased mb9 18:37 Drug: pantoprazole 40 mg [pantoprazole 40 mg intravenous solution] Route: IV; Rate: mb9 bolus; Site: left antecubital; Signatures: Dispatcher [employer] EDMS Coco Chung, Medical Receptionist Medical Assistant Unit lbd Neli Ugalde, Reg Reg gb Sowmya-Elba CrabtreeRN RN ck1 Hemanth Hsu MD MD br1 Sanchez Okeefe RN RN mb9 Faith Grissom Kim, RN RN kas2 Mireille Lyons RN lf1 The chart was reviewed and I authenticate all verbal orders and agree with the evaluation and treatment provided.Corrections: (The following items were deleted from the chart) 18:31 18:29 LIVER PROFILE+LAB ordered. EDMS EDMS 18:32 18:29 LIPASE+LAB ordered. EDMS EDMS Attachments: 17:21 [facility] Payment Agreement gjb 10:36 T-Sheet-- Draft Copy gb 10:37 ECG/EKG gb Chart Complete MTDD
--- NOTE | 2017-01-03 22:50 | EDDOCDS ---
Physician Documentation [facility] Name: Freda To Age: 41 yrs Sex: Female : 1975 Arrival Date: 01/01/2017 Time: 14:21 Bed 12 Private MD: No Pcp Disposition: 01/01/17 21:37 Discharged to Home/Self Care. Impression: Chest pain, unspecified. - Condition is Stable. - Discharge Instructions: Nonspecific Chest Pain. - Medication Reconciliation, Local Pharmacy Hours form. - Follow up: Murali Londono MD; When: 2 - 3 days; Reason: Recheck today's complaints. Follow up: [facility] - Adults; When: 2 - 3 days; Reason: Recheck today's complaints. - Problem is new. - Symptoms have improved. - Notes: You were seen in the ED for chest pain. Bloodwork along with EKG of the heart, chest Xray and CT scan of the chest showed no acute findings. We have discussed the case with Cardiology as well. As you are feeling better you may return home to follow up with your primary doctor as well as Cardiology for further evaluation - please call the offices (see the numbers below) to arrange to be seen in the morning.
Return to the ED for any return of chest pain, trouble breathing, lightheadedness, loss of consciousness or any other concerns. Historical: - Allergies: Vicodin; Codeine Sulfate; - Home Meds: 1. none - PMHx: Lupus; Rheumatoid Arthritis; Fibromyalgia; Hypertension; Asthma; Depression; Bipolar disorder; Anxiety; - PSHx: Cesearean Section; Hysterectomy; Appendectomy; Cholecystectomy; - Social history: Smoking status: Patient uses tobacco products, heavy tobacco smoker. No barriers to communication noted, The patient speaks fluent Taiwanese, Speaks appropriately for age. - Family history: No immediate family members are acutely ill. - : The pt / caregiver states he / she is not on anticoagulants. Home medication list is obtained from the patient. - Exposure Risk Screening:: None identified. Vital Signs: 01/01 14:24 BP 157 / 105 RA Sitting (auto/reg); Pulse 89; Resp 18; Temp 98.7(O); Pulse Ox 98% on jrd R/A; Weight 87.09 kg / 192 lbs (R); Height 5 ft. 3 in. (160.02 cm) (R); Pain 8/10; 14:53 Pulse 82 MON; Pulse Ox 97% ; mb9 14:53 BP 133 / 81 (auto/); mb9 15:08 BP 132 / 85 (auto/); mb9 15:09 Pulse 80 MON; Pulse Ox 99% ; mb9 15:22 Pulse 82 MON; Pulse Ox 99% ; mb9 15:23 BP 143 / 91 (auto/); mb9 15:29 Pulse 94 MON; Pulse Ox 98% ; mb9 15:51 BP 140 / 82 (auto/); mb9 15:53 Pulse 80 MON; Pulse Ox 98% ; mb9 15:53 BP 135 / 77 (auto/); mb9 15:58 Pulse 78 MON; Pulse Ox 98% ; lf1 16:08 BP 133 / 87 (auto/); lf1 16:09 Pulse 86 MON; Resp 18; Pulse Ox 99% on R/A; Pain 8/10; lf1 16:23 BP 134 / 86 (auto/); lf1 16:24 Pulse 82 MON; Resp 18; Pulse Ox 99% on R/A; Pain 8/10; lf1 16:30 BP 118 / 68 (auto/); lf1 16:31 Pulse 86 MON; Resp 18; Pulse Ox 97% on R/A; Pain 7/10; lf1 16:38 BP 118 / 67 (auto/); mb9 16:39 Pulse 84 MON; Pulse Ox 96% ; mb9 16:40 Pulse 78 MON; Pulse Ox 96% ; mb9 16:40 BP 125 / 73 (auto/); Pain 7/10; mb9 16:48 BP 114 / 65 (auto/); Pain 6/10; mb9 16:49 Pulse 78 MON; Pulse Ox 97% ; mb9 16:53 BP 121 / 66 (auto/); mb9 16:54 Pulse 76 MON; Pulse Ox 98% ; mb9 17:08 Pulse 82 MON; Pulse Ox 98% ; mb9 17:08 BP 103 / 59 (auto/); mb9 17:23 BP 100 / 56 (auto/); mb9 17:24 Pulse 72 MON; Pulse Ox 98% ; mb9 17:38 Pulse 86 MON; Pulse Ox 97% ; mb9 17:38 BP 111 / 78 (auto/); mb9 17:53 BP 120 / 82 (auto/); mb9 17:54 Pulse 72 MON; Pulse Ox 99% ; mb9 18:08 BP 129 / 73 (auto/); mb9 18:09 Pulse 70 MON; Pulse Ox 94% ; mb9 18:12 Pain 4/10; mb9 18:23 BP 171 / 91 (auto/); kas2 18:23 Pulse 70 MON; Pulse Ox 97% ; kas2 19:02 BP 156 / 71 (auto/); kas2 19:04 Pulse 66 MON; Pulse Ox 98% ; kas2 19:04 Pain 4/10; mb9 19:32 BP 134 / 75 (auto/); kas2 19:32 Pulse 68 MON; Pulse Ox 97% ; kas2 19:40 Resp 18; Temp 97.9(O); kas2 20:02 BP 121 / 63 (auto/); kas2 20:02 Pulse 72 MON; Pulse Ox 96% ; kas2 21:07 BP 129 / 65 (auto/); kas2 21:07 Pulse 64 MON; Pulse Ox 97% ; kas2 21:43 BP 156 / 89 (auto/); kas2 21:43 Pulse 68 MON; Pulse Ox 95% ; kas2 21:48 Resp 20; Temp 97.9; kas2 14:24 Body Mass Index 34.01 (87.09 kg, 160.02 cm) jrd 16:31 After first Nitro - 2nd dose given lf1 MDM: 14:33 ECG WITH READING ER PHYS+CARDIAG ordered. EDMS 14:44 Aspirin Chewable Tablet 324 mg PO once ordered. br1 14:44 Snow Plow Tractor Operator/Pulse Ox/q 30 min VS ordered. br1 14:44 IV Saline Lock ordered. br1 14:44 Rhythm Strip to chart ordered. br1 14:44 Undress patient appropriately for examination ordered. br1 14:44 Chest, 2 View (pa\E\lat) Ordered. EDMS 14:44 Basic Metabolic Profile Ordered. EDMS 14:44 CBC with Diff Ordered. EDMS 14:44 Cardiac Injury Profile Ordered. EDMS 14:44 Troponin Ordered. EDMS 14:46 -Influenza A&B Rapid Antigen - Nose Ordered. EDMS 15:47 CBC with Diff Reviewed. br1 15:47 Basic Metabolic Profile Reviewed. br1 15:47 Cardiac Injury Profile Reviewed. br1 15:47 Troponin Reviewed. br1 15:47 -Influenza A&B Rapid Antigen - Nose Reviewed. br1 15:48 CT Chest Angio R/O PE Ordered. EDMS 16:18 Nitrostat 0.4 mg Sublingual every 5 minutes; hold if SBP<90mmHg.Document Pain Score br1 Response to Each Dose x3 ordered. 17:08 morphine 4 mg IVP once ordered. br1 17:08 Financial registration complete. gjb 17:08 Ondansetron 4 mg IVP once ordered. br1 17:21 [facility] [place] Agreement was scanned into [employer] and attached to record. gjb 18:25 GI Cocktail - (Alum-Mag Hydroxide-Simeth 30 ml, Lidocaine 10 ml, Hyoscyamine 10 ml) PO br1 once; Pre-mixed 50mL unit dose ordered. 18:26 Admit to ED Observation status ordered. br1 18:28 pantoprazole 40 mg IV at bolus once ordered. br1 18:28 Repeat EKG (put time details section) ordered. br1 18:28 Redraw CIP &Troponin (put time in details section) ordered. br1 18:34 Redraw CIP &Troponin (put time in details section) complete. lbd 18:34 Repeat EKG (put time details section) complete. lbd 18:37 ECG WITH READING ER PHYS ordered. EDMS 18:38 CARDIAC MARKER PANEL Ordered. EDMS 20:31 Admit to ED Observation status complete. kas2 21:11 Basic Metabolic Profile Reviewed. br1 21:11 Cardiac Injury Profile Reviewed. br1 21:11 Troponin Reviewed. br1 21:11 LIVER PROFILE Reviewed. br1 21:11 LIPASE Reviewed. br1 21:11 CARDIAC MARKER PANEL Reviewed. br1 21:11 Chest, 2 View (pa\E\lat) Reviewed. br1 21:11 CT Chest Angio R/O PE Reviewed. br1 0202 10:16 T-Sheet-- Draft Copy was scanned into [employer] and attached to record. gb 10:17 ECG/EKG was scanned into [employer] and attached to record. gb 10:17 Radiology Report was scanned into [employer] and attached to record. gb 10:36 T-Sheet-- Draft Copy was scanned into [employer] and attached to record. gb 10:37 ECG/EKG was scanned into [employer] and attached to record. gb 10:37 Radiology Report was scanned into [employer] and attached to record. gb Administered Medications: 01/01 15:09 Drug: Aspirin 324 mg [aspirin 81 mg chewable tablet (4 tabs)] Route: PO; mb9 16:24 Drug: Nitrostat 0.4 mg [Nitrostat 0.4 mg sublingual tablet (1 tabs)] Route: Sublingual; lf1 16:32 Drug: Nitrostat 0.4 mg [Nitrostat 0.4 mg sublingual tablet (1 tabs)] Route: Sublingual; lf1 16:43 Drug: Nitrostat 0.4 mg [Nitrostat 0.4 mg sublingual tablet (1 tabs)] Route: Sublingual; mb9 17:39 Drug: morphine 4 mg [morphine 4 mg/mL intravenous cartridge (1 mL)] Route: IVP; Site: mb9 left antecubital; 18:12 Follow up: Pain 4/10 Adult; Response: Pain is decreased mb9 17:39 Drug: Ondansetron 4 mg [ondansetron HCl 2 mg/mL intravenous solution (2 mL)] Route: mb9 IVP; Site: left antecubital; 18:12 Follow up: Response: Nausea is resolved mb9 18:37 Drug: GI Cocktail - (Alum-Mag Hydroxide-Simeth Suspension 225 mg-200 mg-25 mg/5 mL 30 mb9 ml, Lidocaine Liquid 2 % 10 ml, Hyoscyamine Liquid 10 ml) Route: PO; 19:04 Follow up: Pain 4/10 Adult; Response: Pain is decreased mb9 18:37 Drug: pantoprazole 40 mg [pantoprazole 40 mg intravenous solution] Route: IV; Rate: mb9 bolus; Site: left antecubital; Signatures: Dispatcher MedHo EDMS Coco Chung, Client Service Supervisor Unit lbd Neli Ugalde, Reg Reg gb Sowmya-Elba CrabtreeRN RN ck1 Hemanth Hsu MD MD br1 Sanchez Okeefe RN RN mb9 Faith Grissom Kim, RN RN kas2 Mireille Lyons RN lf1 The chart was reviewed and I authenticate all verbal orders and agree with the evaluation and treatment provided.Corrections: (The following items were deleted from the chart) 18:31 18:29 LIVER PROFILE+LAB ordered. EDMS EDMS 18:32 18:29 LIPASE+LAB ordered. EDMS EDMS Attachments: 17:21 [facility] Payment Agreement gjb 10:36 T-Sheet-- Draft Copy gb 10:37 ECG/EKG gb Chart Complete MTDD
== END 2017-01-01 21:50 | disposition home or self-care (01) ==
LOC: M ED 14:21
DX: R07.9 Chest pain, unspecified (principal); M32.9 Systemic lupus erythematosus, unspecified; M05.40 Rheumatoid myopathy with rheumatoid arthritis of unspecified site; M79.7 Fibromyalgia; I10 Essential (primary) hypertension; J45.909 Unspecified asthma, uncomplicated; F31.9 Bipolar disorder, unspecified; F17.210 Nicotine dependence, cigarettes, uncomplicated; Z88.5 Allergy status to narcotic agent
CPT/HCPCS: 36415; 71020; 71275; 80048; 80076; 82550; 82553; 83690; 84484; 85025; 87804; 93005; 93041; 96374; 96375; 99285; C9113; J2405; Q9967

== ENCOUNTER 2017-01-01 22:13 | Observation (INO) | payer MEDICARE, MEDICAID ==
[~2017-01-01] VITALS: Ht 160 cm; Wt 89.3 kg
[2017-01-01 23:13] LABS: BASO % 0.6 % (0.0-1.0); EOS # 0.1 K/mm3 (0.0-0.50); EOS % 0.9 % (0.0-3.0); LARGE UNSTAINED CELL # 0.1 K/mm3 (0.0-0.4); LARGE UNSTAINED CELL % 1.5 % (0.0-4.0); LYMPH # 2.2 K/mm3 (1.5-4.5); MEAN CORPUSCULAR HEMOGLOBIN 30.5 pg (27.0-33.0); MEAN CORPUSCULAR HGB CONC 34.7 g/dl (32.0-36.5); MONO # 0.4 K/mm3 (0.0-0.8); MONO % 4.5 % (0.0-5.0); NEUTROPHILS # 5.6 K/mm3 (1.8-7.7); NEUTROPHILS % 66.5 % (36.0-66.0); PLATELET COUNT, AUTOMATED 246 k/mm3 (150-450); RED CELL DISTRIBUTION WIDTH 12.5 % (11.5-14.5); WHITE BLOOD COUNT 8.3 K/mm3 (4.0-10.0)
[2017-01-01] MEDS ORDERED: ALBU17IN INH (23:32)
[2017-01-01] MEDS ORDERED: ACET50TAOT PO (23:32)
[2017-01-01 23:33] LABS: ANION GAP 10 MEQ/L (8-16); BLOOD UREA NITROGEN 10 MG/DL (7-18); CALCIUM LEVEL 8.9 MG/DL (8.5-10.1); CARBON DIOXIDE LEVEL 25 MEQ/L (21-32); CHLORIDE LEVEL 108 MEQ/L (98-107); GLOMERULAR FILTRATION RATE > 60.0 (>58); GLUCOSE, FASTING 93 MG/DL (70-105); POTASSIUM SERUM 3.7 MEQ/L (3.5-5.1); SODIUM LEVEL 143 MEQ/L (136-145)
[2017-01-02] VITALS (8 sets, daily range): BP systolic 95–140; BP diastolic 56–81
[2017-01-02] MEDS ORDERED: GI COCKTAIL 50ML BTL(HYOSCYAMINE/MAALOX/LIDOCAINE VISCOUS)(1:3:1) PO PRN (00:30)
[2017-01-02] MEDS ORDERED: IPRATROPIUM 0.5MG/ALBUTEROL 2.5MG INH SOL UD 3ML (DUONEB)(J7620) NEB PRN (00:30)
[2017-01-02] MEDS ORDERED: ONDANSETRON 4MG/2ML VIAL (J2405) IV PRN (00:30)
[2017-01-02] MEDS ORDERED: LR 1,000 ML IV SCH (00:45)
--- NOTE | 2017-01-02 02:46 | HPE ---
DATE OF ADMISSION: 01/02/2017 PRIMARY CARE PROVIDER: Patient does not have a primary care provider, is scheduled to followup with provider at [facility], but not yet established. CHIEF COMPLAINT: Chest pain. HISTORY OF PRESENT ILLNESS: This is a 41-year-old female patient with underlying medical history of anxiety, asthma, smoker, bipolar disorder, depression, fibromyalgia, hypertension, lupus, rheumatoid arthritis who on 12/31/2016, at around 9 p.m. with chest discomfort, left-sided. As per patient, was aching and pressure-like radiating up to the left side of the patient's neck ranging from 3/10 to 8/10, but never resolved completely, worsened with respiration with no relieving factors. Patient subsequently presented to the emergency room. Reported sick contact with grandchildren who are sick with gastrointestinal (GI) bug. Patient also had recent cough with no mucus production who presented to the emergency room. EKG was initially negative. Serial cardiac enzymes were done in the emergency room and was all negative, and CT angiogram was negative for pulmonary embolism (PE) or pericardial effusion. Subsequently, arrangements were made for patient to be discharged. While getting a cab ride, the patient had a smoke of cigarettes and suddenly felt diaphoretic and anxious and vomited three times, mostly bilious, non-bloody, and subsequently returned back to the emergency room. Repeat EKG was negative as well, and cardiac enzymes have been negative as well, but subsequently emergency room provider has requested the patient to be admitted for observation. While in the emergency department (ED), the patient was given morphine and reported epigastric discomfort, given a GI cocktail with resolution. Currently, patient reported 3/10 chest discomfort, but comfortable. Epigastric discomfort has also resolved. Reported chest pain much better. Mild wheezing. Denies any fevers or chills. Denies any diarrhea or constipation. Patient reported previously had similar episodes. She used to see Dr. Londono. Patient recently moved here from [place] to around [place]. Initially, has seen a transformer builder in [place], and previously when the patient lived in [place], patient saw transformer builder in [place]. Currently, patient has no established transformer builder. ALLERGIES: Reported allergic reaction to: 1. CODEINE (hallucinations and drowsiness). 2. VICODIN. PAST MEDICAL HISTORY: 1. Anxiety. 2. Asthma. 3. Bipolar disorder. 4. Smoker. 5. Depression. 6. Fibromyalgia. 7. Hypertension. 8. Lupus. 9. Rheumatoid arthritis. PAST SURGICAL HISTORY: 1. Appendectomy. 2. Cholecystectomy. 3. Hysterectomy. 4. section. SOCIAL HISTORY: Patient lives at home alone, but does have relatives in [place]. Patient reports smoking one pack per day for 28 years, drinking about once a month, very minimal. Denies any illicit drug use. FAMILY HISTORY: Noncontributory. REVIEW OF SYSTEMS: 11-point review of systems were negative except for those mentioned in the history of present illness. HOME MEDICATIONS: - acetaminophen 1000 mg by mouth every six hours as needed - Ventolin inhaler every four hours as needed PHYSICAL EXAMINATION: VITAL SIGNS: Blood pressure 143/83, pulse 72, respirations 20, temperature 97.4, pulse oximetry 96% on room air. GENERAL: The patient is alert, and oriented times three, in no acute distress. HEENT: Normocephalic, atraumatic. PULMONARY: Bilaterally expiratory wheeze. CARDIAC: Regular rate and rhythm; normal S1, S2. ABDOMEN: Soft, nontender, and nondistended. EXTREMITIES: No edema bilateral lower extremities. EKG: Sinus rhythm at 76. No ST segment changes. CT angiogram negative for PE. LABORATORY DATA: WBC 8.3, hemoglobin and hematocrit 14.5/41.7, platelets 246. Influenza negative. Sodium 143, potassium 3.7, chloride 108, bicarbonate 25, BUN 10, creatinine 1. Cardiac enzymes negative times three. ASSESSMENT AND PLAN: This is a 41-year-old female patient with underlying medical history of anxiety, asthma, bipolar disorder, depression, fibromyalgia, hypertension, lupus, rheumatoid arthritis who presented initially with chest pain and also with nausea and vomiting. 1. Chest pain. CT angiogram negative for pulmonary embolism (PE). We will repeat cardiac enzymes given the patient had another episode with diaphoresis, nausea, and vomiting. We will get echocardiogram. Emergency room provider, Dr. Hsu, has discussed the case with Dr. Londono. Patient was initially referred to Dr. Londono for outpatient followup. We will followup cardiac enzymes and echocardiogram. If there is any positive findings, we will consult Dr. Londono. In the meantime, we will follow telemetry monitoring, followup erythrocyte sedimentation rate (ESR), C-reactive protein (CRP). 2. Wheezing and cough likely asthma exacerbation. CT is negative for any infiltrates or consolidations. No leukocytosis. Influenza is negative. We will get respiratory panel. Advair has been added along with nebulizer treatment, Mucinex. We will continue to monitor. 3. Hypertension. Monitor blood pressure. Patient is not on any medication. 4. Anxiety, bipolar disorder, depression. Outpatient followup. Patient currently asymptomatic. 5. Lupus and rheumatoid arthritis. Patient needs outpatient followup with transformer builder. We will get ESR, C-reactive protein to see if the patient is in active flair. 6. Smoking. Counseling provided. Nicotine patch. 7. Deep vein thrombosis (DVT) prophylaxis. Heparin subcutaneous. DISPOSITION PLANNING: Pending further cardiac enzymes, echocardiograms. We will check orthostatics. Gastrointestinal (GI) cocktail has been given. Patient admitted for observation.
[2017-01-02] MEDS: guaiFENesin ER 600 MG TAB PO SCH ×3 (02:50→20:27)
[2017-01-02] MEDS: SENOKOT S TAB PO SCH ×3 (02:50→21:00)
[2017-01-02] MEDS: ADVAIR DISKUS 500/50 INH PWD INH SCH ×3 (03:42→19:49)
[2017-01-02 06:49] LABS: MEAN CORPUSCULAR HEMOGLOBIN 30.9 pg (27.0-33.0); MEAN CORPUSCULAR HGB CONC 34.6 g/dl (32.0-36.5); MEAN CORPUSCULAR VOLUME 89.1 fl (80.0-96.0); RED CELL DISTRIBUTION WIDTH 12.6 % (11.5-14.5)
[2017-01-02 07:07] LABS: ANION GAP 6 MEQ/L (8-16); BLOOD UREA NITROGEN 11 MG/DL (7-18); CALCIUM LEVEL 8.4 MG/DL (8.5-10.1); CARBON DIOXIDE LEVEL 26 MEQ/L (21-32); CHLORIDE LEVEL 110 MEQ/L (98-107); GLOMERULAR FILTRATION RATE > 60.0 (>58); GLUCOSE, FASTING 84 MG/DL (70-105); MAGNESIUM LEVEL 2.2 MG/DL (1.8-2.4); SODIUM LEVEL 142 MEQ/L (136-145)
[2017-01-02] MEDS: IPRATROPIUM 0.5MG/ALBUTEROL 2.5MG INH SOL UD 3ML (DUONEB)(J7620) NEB SCH ×3 (07:18→19:49)
[2017-01-02] MEDS: PANTOPRAZOLE 40MG TAB (PROTONIX) PO SCH (09:53)
[2017-01-02] MEDS: HEPARIN SOD (PORCINE) 5000 UNITS/ML VIAL SC SCH ×2 (09:53→20:27)
[2017-01-02] MEDS: NICOTINE 21MG/24HR 1 EA TRANSDERMAL TD SCH (09:53)
--- NOTE | 2017-01-02 13:55 | EDDOCDS ---
Nurse's Notes [facility] Name: Freda To Age: 41 yrs Sex: Female : 1975 Arrival Date: 01/01/2017 Time: 22:13 Bed Admit Hold Private MD: Shanna Pcp Diagnosis: Chest pain, unspecified Presentation: 01/01 22:21 Presenting complaint: Patient states: Was outside smoking awaiting a cab home after jo3 discharge. Got suddenly nauseated and vomited twice. Adult Sepsis Screening: The patient does not have new or worsening altered mentation. Patient's respiratory rate is less than 22. Systolic blood pressure is greater than 100. Patient has a qSOFA score of 0- Negative Sepsis Screen. Suicide/Homicide risk assessment- the patient denies having any suicidal and/or homicidal ideations and does not present with any other emotional, behavioral or mental health complaints. 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 Transition of care: patient was not received from another setting of care. 22:21 Method Of Arrival: Walkin/Carried/Asstd jo3 22:23 Acuity: NATALIA Level 3 jo3 Triage Assessment: 22:23 General: Appears in no apparent distress, uncomfortable, Behavior is appropriate for jo3 age, cooperative. HIV screening NA for this visit Offered previously. Neurological: Level of Consciousness is awake, alert, Oriented to person, place, time. Respiratory: Airway is patent Respiratory effort is even, unlabored. Derm: Skin is pink, warm & dry. Historical: - Allergies: Codeine Sulfate; Vicodin; - Home Meds: 1. none - PMHx: Anxiety; Asthma; Bipolar disorder; Depression; Fibromyalgia; Hypertension; Lupus; Rheumatoid Arthritis; - PSHx: Cesearean Section; Hysterectomy; Appendectomy; Cholecystectomy; - Social history: Smoking status: Patient uses tobacco products, heavy tobacco smoker. No barriers to communication noted, The patient speaks fluent Sudanese, Speaks appropriately for age. - Family history: Not pertinent. - : The pt / caregiver states he / she is not on anticoagulants. Home medication list is obtained from the patient. - Exposure Risk Screening:: None identified. Screenin:47 Screening information is obtained from the patient. Fall risk: No risks identified. jp6 Assistance ADL's: requires no assistance with activities of daily living. Abuse/DV Screen: The patient / caregiver reports he/she is: not in a situation that causes fear, pain or injury. Nutritional screening: No deficits noted. home support is adequate. Assessment: 22:34 General: Appears Behavior is anxious. Pain: Location: chest Pain currently is 8 out of lf1 10 on a pain scale. Respiratory: Respiratory pattern is tachypnea. GI: Reports vomiting. 23:30 Reassessment: Patient appears in no apparent distress at this time. Patient states jp6 symptoms have improved. Pain: Location: chest Pain currently is 2 out of 10 on a pain scale. Cardiovascular: Capillary refill < 3 seconds Heart tones S1 S2 present Rhythm is sinus rhythm No ectopy. Respiratory: Airway is patent Respiratory effort is even, unlabored, Respiratory pattern is regular, symmetrical. GI: No deficits noted. Derm: Skin is pink, warm & dry. 01/02 00:23 Reassessment: Patient appears in no apparent distress at this time. Patient states jp6 symptoms have improved. General: Behavior is appropriate for age, cooperative. Pain: Denies pain. Neurological: No deficits noted. Neurological: No deficits noted. Level of Consciousness is awake, alert, Oriented to person, place, time. EENT: No deficits noted. Cardiovascular: Rhythm is sinus rhythm Chest pain. Respiratory: Airway is patent Respiratory effort is even, unlabored, Respiratory pattern is regular, symmetrical, Breath sounds are clear bilaterally. GI: Bowel sounds present X 4 quads. Abd is soft and non tender X 4 quads. : No deficits noted. Derm: Skin is pink, warm & dry. Musculoskeletal: No deficits noted. 01:57 Reassessment: Patient appears in no apparent distress at this time. Patient states jp6 symptoms have improved. General: Appears in no apparent distress, comfortable, Behavior is appropriate for age, cooperative. Pain: Location: chest Pain currently is 2 out of 10 on a pain scale. Cardiovascular: Rhythm is sinus rhythm No ectopy. Respiratory: Airway is patent Respiratory effort is even, unlabored, Respiratory pattern is regular, symmetrical. Derm: Skin is pink, warm & dry. Vital Signs: 01/01 22:14 BP 179 / 94; Pulse 90; Resp 20 S; Temp 97.4(O); Pulse Ox 96% on R/A; Weight 87.09 kg gr2 (R); Height 5 ft. 3 in. (160.02 cm) (R); Pain 4/10; 22:51 BP 146 / 92 (auto/); jp6 22:52 Pulse 82 MON; Pulse Ox 98% ; jp6 23:06 BP 136 / 72 (auto/); jp6 23:07 Pulse 76 MON; Pulse Ox 97% ; jp6 23:21 BP 143 / 83 (auto/); jp6 23:22 Pulse 72 MON; Pulse Ox 98% ; jp6 23:36 BP 130 / 74 (auto/); jp6 23:37 Pulse 74 MON; Pulse Ox 96% ; jp6 23:47 Pulse 70 MON; Pulse Ox 95% ; jp6 23:51 BP 116 / 75 (auto/); jp6 23:52 Pulse 72 MON; Pulse Ox 94% ; jp6 02/02 00:06 BP 132 / 84 (auto/); jp6 00:07 Pulse 68 MON; Pulse Ox 96% ; jp6 00:21 BP 124 / 81 (auto/); jp6 00:22 Pulse 70 MON; Pulse Ox 95% ; jp6 00:36 BP 120 / 72 (auto/); jp6 00:37 Pulse 70 MON; Pulse Ox 96% ; jp6 00:51 BP 122 / 77 (auto/); jp6 00:52 Pulse 70 MON; Pulse Ox 95% ; jp6 01:06 BP 118 / 75 (auto/); jp6 01:07 Pulse 70 MON; Pulse Ox 93% ; jp6 01:21 BP 123 / 77 (auto/); jp6 01:22 Pulse 70 MON; Pulse Ox 95% ; jp6 01:36 BP 107 / 58 (auto/); jp6 01:37 Pulse 74 MON; Pulse Ox 94% ; jp6 01:51 BP 107 / 65 (auto/); jp6 01:52 Pulse 74 MON; Pulse Ox 94% ; jp6 01/01 22:14 Body Mass Index 34.01 (87.09 kg, 160.02 cm) gr2 Vitals: 01/01 22:14 Log In Time: January 01, 2017 at 22:14. gr2 ED Course: 22:14 Patient visited by Maye Groves. gr2 22:14 No Pcp is Private Physician. gr2 22:14 Patient moved to Waiting gr2 22:16 Patient visited by Maye Groves. gr2 22:17 Patient moved to Pre RCE gr2 22:23 Triage Initiated jo3 22:43 Hemanth Hsu MD is Attending Physician. br1 22:43 Patient moved to 14 lf1 22:48 Patient visited by Hemanth Hsu MD. br1 23:04 Jasmina Orellana,RN is Primary Nurse. jp6 23:15 [facility] Payment Agreement was scanned into [employer] and attached to record. pm4 23:47 The patient / caregiver is instructed regarding the plan of care and ED course. Cardiac jp6 monitor on. Pulse ox on. NIBP on. 23:47 Inserted saline lock: 20 gauge in right antecubital area and blood collected. No jp6 procedures done that require assistance. Labs drawn. (by ED staff). Sent per order to lab. 23:48 Patient visited by Jasmina Orellana RN. jp6 23:59 Estelita Painting is Hospitalizing Provider. br1 02 00:40 Patient moved to Admit Hold sls1 02:40 Patient moved to 21 tm5 04:17 Patient moved to Admit Hold sls1 Administered Medications: 01/01 23:21 Drug: Ondansetron 4 mg [ondansetron HCl 2 mg/mL intravenous solution (2 mL)] Route: jp6 IVP; Site: right antecubital; Order Results: Lab Order: Basic Metabolic Profile; SPEC'M 01/01/17 22:58 Test: GLUCOSE, FASTING; Value: 93; Range: 70-105; Units: MG/DL; Status: F Test: BLOOD UREA NITROGEN; Value: 10; Range: 7-18; Units: MG/DL; Status: F Test: CREATININE FOR GFR; Value: 1.00; Range: 0.55-1.02; Units: MG/DL; Status: F Test: GLOMERULAR FILTRATION RATE; Value: > 60.0; Range: >58; Status: F Test: SODIUM LEVEL; Value: 143; Range: 136-145; Units: MEQ/L; Status: F Test: POTASSIUM SERUM; Value: 3.7; Range: 3.5-5.1; Units: MEQ/L; Status: F Test: CHLORIDE LEVEL; Value: 108; Range: 98-107; Abnormal: Above high normal; Units: MEQ/L; Status: F Test: CARBON DIOXIDE LEVEL; Value: 25; Range: 21-32; Units: MEQ/L; Status: F Test: ANION GAP; Value: 10; Range: 8-16; Units: MEQ/L; Status: F Test: CALCIUM LEVEL; Value: 8.9; Range: 8.5-10.1; Units: MG/DL; Status: F Test Note: ; Units are mL/min/1.73 m2 Chronic Kidney Disease Staging per NKF: Stage I & II GFR >=60 Normal to Mildly Decreased Stage III GFR 30-59 Moderately Decreased Stage IV GFR 15-29 Severely Decreased Stage V GFR <15 Very Little GFR Left ESRD GFR <15 on PROPOSAL SPECIALIST Lab Order: CBC with Diff; SPEC'M 01/01/17 22:58 Test: WHITE BLOOD COUNT; Value: 8.3; Range: 4.0-10.0; Units: K/mm3; Status: F Test: RED BLOOD COUNT; Value: 4.74; Range: 4.00-5.40; Units: M/mm3; Status: F Test: HEMOGLOBIN; Value: 14.5; Range: 12.0-16.0; Units: g/dl; Status: F Test: HEMATOCRIT; Value: 41.7; Range: 36.0-47.0; Units: %; Status: F Test: MEAN CORPUSCULAR VOLUME; Value: 88.0; Range: 80.0-96.0; Units: fl; Status: F Test: MEAN CORPUSCULAR HEMOGLOBIN; Value: 30.5; Range: 27.0-33.0; Units: pg; Status: F Test: MEAN CORPUSCULAR HGB CONC; Value: 34.7; Range: 32.0-36.5; Units: g/dl; Status: F Test: RED CELL DISTRIBUTION WIDTH; Value: 12.5; Range: 11.5-14.5; Units: %; Status: F Test: PLATELET COUNT, AUTOMATED; Value: 246; Range: 150-450; Units: k/mm3; Status: F Test: NEUTROPHILS %; Value: 66.5; Range: 36.0-66.0; Abnormal: Above high normal; Units: %; Status: F Test: LYMPH %; Value: 26.0; Range: 24.0-44.0; Units: %; Status: F Test: MONO %; Value: 4.5; Range: 0.0-5.0; Units: %; Status: F Test: EOS %; Value: 0.9; Range: 0.0-3.0; Units: %; Status: F Test: BASO %; Value: 0.6; Range: 0.0-1.0; Units: %; Status: F Test: LARGE UNSTAINED CELL %; Value: 1.5; Range: 0.0-4.0; Units: %; Status: F Test: NEUTROPHILS #; Value: 5.6; Range: 1.8-7.7; Units: K/mm3; Status: F Test: LYMPH #; Value: 2.2; Range: 1.5-4.5; Units: K/mm3; Status: F Test: MONO #; Value: 0.4; Range: 0.0-0.8; Units: K/mm3; Status: F Test: EOS #; Value: 0.1; Range: 0.0-0.50; Units: K/mm3; Status: F Test: BASO #; Value: 0.0; Range: 0.0-0.2; Units: K/mm3; Status: F Test: LARGE UNSTAINED CELL #; Value: 0.1; Range: 0.0-0.4; Units: K/mm3; Status: F Lab Order: Cardiac Injury Profile; [facility]' 01/01/17 22:58 Test: CPK CREATINE PHOSPHOKINASE; Value: 65; Range: 26-192; Units: U/L; Status: F Test: CK-MB VALUE MASS; Value: 1.0; Range: 0.0-3.6; Units: NG/ML; Status: F Test: MB/CK RELATIVE INDEX; Value: 1.53; Range: < OR =4; Status: F Test Note: ; DIAGNOSIS CRITERIA MMB ng/ml Relative Index (RI) NON-AMI < or = 5 N/A VELASQUEZ ZONE > 5 < or = 4 AMI > 5 > 4 Lab Order: Troponin; SPEC'M 01/01/17 22:58 Test: TROPONIN I; Value: < 0.02; Range: < 0.10; Units: NG/ML; Status: F Test Note: ; Troponin I Reference Interval for [employer] LOCI: 99th Percentile= 0.00-0.045 ng/ml Risk Stratification: <= 0.10 ng/ml Decreased Risk for Adverse Clinical Events. 0.10-1.50 ng/ml Increased Risk for Adverse Clinical Events. Evaluation of additional criterion and/or repeat testing in 2-6 hours is suggested to rule out myocardial damage. >= 1.50 ng/ml Indicative of Myocardial Injury. Lab Order: CARDIAC MARKER PANEL; [facility]01/02/17 12:12 Test: CPK CREATINE PHOSPHOKINASE; Value: 77; Range: 26-192; Units: U/L; Status: F Test: CK-MB VALUE MASS; Value: 1.0; Range: 0.0-3.6; Units: NG/ML; Status: F Test: MB/CK RELATIVE INDEX; Value: 1.29; Range: < OR =4; Status: F Test: TROPONIN I; Value: < 0.02; Range: < 0.10; Units: NG/ML; Status: F Test Note: ; DIAGNOSIS CRITERIA MMB ng/ml Relative Index (RI) NON-AMI < or = 5 N/A VELASQUEZ ZONE > 5 < or = 4 AMI > 5 > 4 Lab Order: C REACTIVE PROTEIN QUANTITATIV; [facility]01/02/17 06:35 Test: C REACTIVE PROTEIN QUANTITATIV; Value: < 0.30; Range: 0.00-0.30; Units: MG/DL; Status: F Lab Order: ERYTHROCYTE SEDIMENTATION RATE; [facility]01/02/17 06:35 Test: ERYTHROCYTE SEDIMENTATION RATE; Value: 11; Range: 0-20; Units: mm/hr; Status: F Lab Order: COMPLETE BLOOD COUNT; [facility]01/02/17 06:35 Test: WHITE BLOOD COUNT; Value: 7.0; Range: 4.0-10.0; Units: K/mm3; Status: F Test: RED BLOOD COUNT; Value: 4.55; Range: 4.00-5.40; Units: M/mm3; Status: F Test: HEMOGLOBIN; Value: 14.0; Range: 12.0-16.0; Units: g/dl; Status: F Test: HEMATOCRIT; Value: 40.5; Range: 36.0-47.0; Units: %; Status: F Test: MEAN CORPUSCULAR VOLUME; Value: 89.1; Range: 80.0-96.0; Units: fl; Status: F Test: MEAN CORPUSCULAR HEMOGLOBIN; Value: 30.9; Range: 27.0-33.0; Units: pg; Status: F Test: MEAN CORPUSCULAR HGB CONC; Value: 34.6; Range: 32.0-36.5; Units: g/dl; Status: F Test: RED CELL DISTRIBUTION WIDTH; Value: 12.6; Range: 11.5-14.5; Units: %; Status: F Test: PLATELET COUNT, AUTOMATED; Value: 226; Range: 150-450; Units: k/mm3; Status: F Lab Order: BASIC METABOLIC PROFILE; [facility]01/02/17 06:35 Test: GLUCOSE, FASTING; Value: 84; Range: 70-105; Units: MG/DL; Status: F Test: BLOOD UREA NITROGEN; Value: 11; Range: 7-18; Units: MG/DL; Status: F Test: CREATININE FOR GFR; Value: 0.90; Range: 0.55-1.02; Units: MG/DL; Status: F Test: GLOMERULAR FILTRATION RATE; Value: > 60.0; Range: >58; Status: F Test: SODIUM LEVEL; Value: 142; Range: 136-145; Units: MEQ/L; Status: F Test: POTASSIUM SERUM; Value: 4.0; Range: 3.5-5.1; Units: MEQ/L; Status: F Test: CHLORIDE LEVEL; Value: 110; Range: 98-107; Abnormal: Above high normal; Units: MEQ/L; Status: F Test: CARBON DIOXIDE LEVEL; Value: 26; Range: 21-32; Units: MEQ/L; Status: F Test: ANION GAP; Value: 6; Range: 8-16; Abnormal: Below low normal; Units: MEQ/L; Status: F Test: CALCIUM LEVEL; Value: 8.4; Range: 8.5-10.1; Abnormal: Below low normal; Units: MG/DL; Status: F Test Note: ; Units are mL/min/1.73 m2 Chronic Kidney Disease Staging per NKF: Stage I & II GFR >=60 Normal to Mildly Decreased Stage III GFR 30-59 Moderately Decreased Stage IV GFR 15-29 Severely Decreased Stage V GFR <15 Very Little GFR Left ESRD GFR <15 on PROPOSAL SPECIALIST Lab Order: MAGNESIUM LEVEL; SPEC'M 01/02/17 06:35 Test: MAGNESIUM LEVEL; Value: 2.2; Range: 1.8-2.4; Units: MG/DL; Status: F Lab Order: CARDIAC MARKER PANEL; SPEC'M 01/02/17 06:35 Test: CPK CREATINE PHOSPHOKINASE; Value: 81; Range: 26-192; Units: U/L; Status: F Test: CK-MB VALUE MASS; Value: 1.0; Range: 0.0-3.6; Units: NG/ML; Status: F Test: MB/CK RELATIVE INDEX; Value: 1.23; Range: < OR =4; Status: F Test: TROPONIN I; Value: < 0.02; Range: < 0.10; Units: NG/ML; Status: F Test Note: ; DIAGNOSIS CRITERIA MMB ng/ml Relative Index (RI) NON-AMI < or = 5 N/A VELASQUEZ ZONE > 5 < or = 4 AMI > 5 > 4 Outcome: 23:59 Decision to Hospitalize by Provider. br1 01/02 13:55 Patient left the ED. [facility] Signatures: Serafin Bull RN RN dwg Lizy VenturaRN RN jo3 Mireille LyonsRN RN lf1 Hemanth Hsu MD MD br1 Arlette Hussein RN RN sls1 Maye Groves gr2 Jasmina Orellana,RN RN stephen6 Lisa Esquivel,RN RN tm5 Dane Duron, Reg Reg pm4 Corrections: (The following items were deleted from the chart) 01/01 22:25 22:21 Acuity: NATALIA Level 4 jo3 jo3 MTDD
--- NOTE | 2017-01-02 13:55 | EDDOCDS ---
Physician Documentation [facility] Name: Freda To Age: 41 yrs Sex: Female : 1975 Arrival Date: 01/01/2017 Time: 22:13 Bed Admit Hold Private MD: Shanna Pcp Disposition: 01/01/17 23:59 Hospitalization ordered by Estelita Painting for Inpatient Admission. Preliminary diagnosis is Chest pain, unspecified. - Bed requested for PCU. - Status is Inpatient Admission. dwg - Condition is Stable. - Problem is new. - Symptoms are unchanged. Historical: - Allergies: Codeine Sulfate; Vicodin; - Home Meds: 1. none - PMHx: Anxiety; Asthma; Bipolar disorder; Depression; Fibromyalgia; Hypertension; Lupus; Rheumatoid Arthritis; - PSHx: Cesearean Section; Hysterectomy; Appendectomy; Cholecystectomy; - Social history: Smoking status: Patient uses tobacco products, heavy tobacco smoker. No barriers to communication noted, The patient speaks fluent [place], Speaks appropriately for age. - Family history: Not pertinent. - : The pt / caregiver states he / she is not on anticoagulants. Home medication list is obtained from the patient. - Exposure Risk Screening:: None identified. Vital Signs: 01/01 22:14 BP 179 / 94; Pulse 90; Resp 20 S; Temp 97.4(O); Pulse Ox 96% on R/A; Weight 87.09 kg / gr2 192 lbs (R); Height 5 ft. 3 in. (160.02 cm) (R); Pain 4/10; 22:51 BP 146 / 92 (auto/); jp6 22:52 Pulse 82 MON; Pulse Ox 98% ; jp6 23:06 BP 136 / 72 (auto/); jp6 23:07 Pulse 76 MON; Pulse Ox 97% ; jp6 23:21 BP 143 / 83 (auto/); jp6 23:22 Pulse 72 MON; Pulse Ox 98% ; jp6 23:36 BP 130 / 74 (auto/); jp6 23:37 Pulse 74 MON; Pulse Ox 96% ; jp6 23:47 Pulse 70 MON; Pulse Ox 95% ; jp6 23:51 BP 116 / 75 (auto/); jp6 23:52 Pulse 72 MON; Pulse Ox 94% ; jp6 01/02 00:06 BP 132 / 84 (auto/); jp6 00:07 Pulse 68 MON; Pulse Ox 96% ; jp6 00:21 BP 124 / 81 (auto/); jp6 00:22 Pulse 70 MON; Pulse Ox 95% ; jp6 00:36 BP 120 / 72 (auto/); jp6 00:37 Pulse 70 MON; Pulse Ox 96% ; jp6 00:51 BP 122 / 77 (auto/); jp6 00:52 Pulse 70 MON; Pulse Ox 95% ; jp6 01:06 BP 118 / 75 (auto/); jp6 01:07 Pulse 70 MON; Pulse Ox 93% ; jp6 01:21 BP 123 / 77 (auto/); jp6 01:22 Pulse 70 MON; Pulse Ox 95% ; jp6 01:36 BP 107 / 58 (auto/); jp6 01:37 Pulse 74 MON; Pulse Ox 94% ; jp6 01:51 BP 107 / 65 (auto/); jp6 01:52 Pulse 74 MON; Pulse Ox 94% ; jp6 01/01 22:14 Body Mass Index 34.01 (87.09 kg, 160.02 cm) gr2 MDM: 01/01 22:49 IV Saline Lock ordered. br1 22:49 Diamond Mounter/Pulse Ox/q 30 min VS ordered. br1 22:49 Rhythm Strip to chart ordered. br1 22:49 Undress patient appropriately for examination ordered. br1 22:49 Ondansetron 4 mg IVP once ordered. br1 22:50 Basic Metabolic Profile Ordered. EDMS 22:50 CBC with Diff Ordered. EDMS 22:50 Cardiac Injury Profile Ordered. EDMS 22:50 Troponin Ordered. EDMS 22:52 BED REQUEST+ADM ordered. EDMS 23:14 Financial registration complete. pm4 23:15 [facility] Payment Agreement was scanned into [employer] and attached to record. pm4 23:48 Basic Metabolic Profile Reviewed. br1 23:48 CBC with Diff Reviewed. br1 23:48 Cardiac Injury Profile Reviewed. br1 23:48 Troponin Reviewed. br1 01/02 00:26 Admission / Observation Status ordered. EDMS 00:27 ECHOCARD,DOPPLER/COLOR FLOW ordered. EDMS 00:27 LOW FAT LOW CHOLESTEROL DIET ordered. EDMS 00:28 CARDIAC MARKER PANEL Ordered. EDMS 00:28 C REACTIVE PROTEIN QUANTITATIV Ordered. EDMS 00:28 ERYTHROCYTE SEDIMENTATION RATE Ordered. EDMS 00:28 COMPLETE BLOOD COUNT Ordered. EDMS 00:28 BASIC METABOLIC PROFILE Ordered. EDMS 00:28 MAGNESIUM LEVEL Ordered. EDMS 00:28 RESPIRATORY PANEL Ordered. EDMS 00:29 PHYSICAL THERAPY EVAL & TREAT ordered. EDMS 06:09 CARDIAC MARKER PANEL Ordered. EDMS Administered Medications: 02 23:21 Drug: Ondansetron 4 mg [ondansetron HCl 2 mg/mL intravenous solution (2 mL)] Route: jp6 IVP; Site: right antecubital; Signatures: Dispatcher [employer] EDMS Serafin Bull, RN RN keirag Brielle Marrero,RN RN kr3 Lizy Ventura,RN RN jo3 Hemanth Hsu MD MD br1 Jasmina OrellanaRN RN jp6 Dane Duron, Reg Reg pm4 The chart was reviewed and I authenticate all verbal orders and agree with the evaluation and treatment provided.Corrections: (The following items were deleted from the chart) 01/02 06:09 00:28 CARDIAC MARKER PANEL ordered. EDMS EDMS 06:56 02 22:29 ECG WITH READING ER PHYS+CARDIAG ordered. EDMS EDMS Attachments: 23:15 [facility] [place] pm4 MTDD
[2017-01-02] MEDS ORDERED: KETOROLAC TROMETHAMINE 10 MG TAB PO PRN (19:00)
[2017-01-03] MEDS: IPRATROPIUM 0.5MG/ALBUTEROL 2.5MG INH SOL UD 3ML (DUONEB)(J7620) NEB SCH ×2 (02:00→07:08)
[2017-01-03 04:00] VITALS: BP 118/58
[2017-01-03 06:03] LABS: MEAN CORPUSCULAR HEMOGLOBIN 31.2 pg (27.0-33.0); MEAN CORPUSCULAR HGB CONC 34.8 g/dl (32.0-36.5); MEAN CORPUSCULAR VOLUME 89.6 fl (80.0-96.0); RED CELL DISTRIBUTION WIDTH 12.6 % (11.5-14.5); WHITE BLOOD COUNT 5.2 K/mm3 (4.0-10.0)
[2017-01-03 06:20] LABS: ANION GAP 7 MEQ/L (8-16); BLOOD UREA NITROGEN 14 MG/DL (7-18); CALCIUM LEVEL 8.1 MG/DL (8.5-10.1); CARBON DIOXIDE LEVEL 26 MEQ/L (21-32); CHLORIDE LEVEL 110 MEQ/L (98-107); CREATININE FOR GFR 0.91 MG/DL (0.55-1.02); GLOMERULAR FILTRATION RATE > 60.0 (>58); GLUCOSE, FASTING 90 MG/DL (70-105); POTASSIUM SERUM 3.7 MEQ/L (3.5-5.1); SODIUM LEVEL 143 MEQ/L (136-145)
[2017-01-03] MEDS: ADVAIR DISKUS 500/50 INH PWD INH SCH (07:08)
[2017-01-03 08:00] VITALS: BP 114/72
--- NOTE | 2017-01-03 08:45 | DSES ---
DATE OF ADMISSION: 01/02/2017 DATE OF DISCHARGE: 01/03/2017 PRIMARY CARE PROVIDER. Patient was scheduled to followup at [facility]; however, she has yet to make an appointment with a provider there and has not established there yet. CHIEF COMPLAINT: Chest pain. FINAL DIAGNOSES: 1. Chest pain, likely secondary to muscle spasm versus costochondritis. 2. History of anxiety. 3. History of bipolar disorder. 4. History of depression. 5. History of lupus, rheumatoid arthritis, not currently on medication. 6. History of tobacco abuse. HISTORY OF PRESENT ILLNESS: Patient is a 41-year-old female with past medical history significant for anxiety, asthma, smoker, bipolar disorder, depression, fibromyalgia, hypertension, lupus, rheumatoid arthritis, presented to the emergency room complaining of left-sided chest discomfort that started 2 days ago. Patient stated that chest pain was described as pressure-like sensation to the left side of the chest and going into her neck, worsened with inspiration. No relieving factors. She presented to the emergency room, received a GI cocktail. CT scan was negative for pulmonary emboli (PEs) or pericardial effusion, which she had a history of. Troponins were negative. Patient was to be discharged from the emergency room. However, while getting a cab ride, she had smoked a cigarette and suddenly felt diaphoretic, anxious, and vomited three times, mostly bilious in nature, nonbloody, presented back to the emergency room. Repeat EKG was still negative. Cardiac enzymes were still negative. Patient was admitted under observation. HOSPITAL COURSE: Patient was given morphine, GI cocktail. Pain had resolved by the time I saw patient. She stated she used to see Dr. Londono. We did need to trend cardiac enzymes, which were negative times three. She was admitted to telemetry. There were no events per compliance monitor. Electrolytes were within normal limits, including magnesium and potassium. By the following day, the patient's symptoms had resolved. She was hemodynamically stable with blood pressure 118/58. Once patient was ready for discharge, she was discharged home. DISCHARGE INSTRUCTIONS: She is to followup with primary care provider at [facility] and Dr. Londono in 1 week. Diet regular. Activities as tolerated. DISCHARGE CONDITION: Stable. DISCHARGE MEDICATIONS: Include: - acetaminophen 1000 mg by mouth every 6 hours as needed pain - Ventolin two puffs inhaled every 4 hours as needed shortness of breath Edited: tyler 01/04/2017 [id number]
[2017-01-03] MEDS: SENOKOT S TAB PO SCH (09:00)
[2017-01-03] MEDS: HEPARIN SOD (PORCINE) 5000 UNITS/ML VIAL SC SCH (09:00)
[2017-01-03] MEDS: NICOTINE 21MG/24HR 1 EA TRANSDERMAL TD SCH (09:00)
[2017-01-03] MEDS: PANTOPRAZOLE 40MG TAB (PROTONIX) PO SCH (09:12)
[2017-01-03] MEDS: guaiFENesin ER 600 MG TAB PO SCH (09:12)
--- NOTE | 2017-01-03 22:28 | ECHO ---
DATE OF PROCEDURE: 01/02/2017 REFERRING PHYSICIAN: Dr. Shaunna Merrill PATIENT'S UNDERGROUND PRODUCTION FOREPERSON: Dr. Londono PATIENT LOCATION: Room 3214 REASON FOR ECHOCARDIOGRAM: Chest pain, unspecified. 2D MEASUREMENTS: IVS: 1.1 cm LV: 4.0 cm LVPW: 1.1 cm LA: 3.1 cm Aorta: 2.8 cm IVC: 2.0 cm DOPPLER MEASUREMENTS: Peak velocity across the aortic valve: 0.81 m/s Peak velocity across the LVOT: 0.61 m/s Mitral E: 0.82, Mitral A: 0.62, with a ratio of 1.3 Maximum tricuspid valve velocity: 2.3 m/s 2D COMMENTS: 1. Normal left ventricular size, wall thickness and normal global left ventricular systolic function. The estimated global left ventricular systolic ejection fraction is 65 to 70%. 2. Normal left atrium. Normal right atrium and right ventricle. 3. The atrial septum appeared to be normal without evidence of defect or shunt. 4. Normal aortic root. 5. No pericardial effusion seen. 6. The aortic valve, mitral valve, tricuspid valve, and pulmonic valve appear to be normal. The proximal pulmonary artery branches were not well visualized. 7. The inferior vena cava was borderline enlarged. DOPPLER: It detects trace aortic regurgitation, mild to moderate mitral regurgitation, mild tricuspid regurgitation. The calculated pulmonary artery systolic pressure is about 30 mmHg. Assessment of the left ventricular diastolic function appeared to be normal. IMPRESSION: 1. Normal global left ventricular systolic and diastolic function. 2. Trace aortic regurgitation. 3. Mild to moderate mitral regurgitation. 4. Mild tricuspid regurgitation with probably mild pulmonary hypertension. MTDD
[2017-01-04] MEDS ORDERED: INFLUENZA QUADRIVALENT PF VACCINE 0.5ML SYRINGE/VIAL (90686) IM ONE (09:00)
--- NOTE | 2017-01-04 14:56 | EDDOCDS ---
Physician Documentation [facility] Name: Freda To Age: 41 yrs Sex: Female : 1975 Arrival Date: 01/01/2017 Time: 22:13 Bed Admit Hold Private MD: Shanna Pcp Disposition: 01/01/17 23:59 Hospitalization ordered by Estelita Painting for Inpatient Admission. Preliminary diagnosis is Chest pain, unspecified. - Bed requested for PCU. - Status is Inpatient Admission. dwg - Condition is Stable. - Problem is new. - Symptoms are unchanged. Historical: - Allergies: Codeine Sulfate; Vicodin; - Home Meds: 1. none - PMHx: Anxiety; Asthma; Bipolar disorder; Depression; Fibromyalgia; Hypertension; Lupus; Rheumatoid Arthritis; - PSHx: Cesearean Section; Hysterectomy; Appendectomy; Cholecystectomy; - Social history: Smoking status: Patient uses tobacco products, heavy tobacco smoker. No barriers to communication noted, The patient speaks fluent Bahamian, Speaks appropriately for age. - Family history: Not pertinent. - : The pt / caregiver states he / she is not on anticoagulants. Home medication list is obtained from the patient. - Exposure Risk Screening:: None identified. Vital Signs: 01/01 22:14 BP 179 / 94; Pulse 90; Resp 20 S; Temp 97.4(O); Pulse Ox 96% on R/A; Weight 87.09 kg / gr2 192 lbs (R); Height 5 ft. 3 in. (160.02 cm) (R); Pain 4/10; 22:51 BP 146 / 92 (auto/); jp6 22:52 Pulse 82 MON; Pulse Ox 98% ; jp6 23:06 BP 136 / 72 (auto/); jp6 23:07 Pulse 76 MON; Pulse Ox 97% ; jp6 23:21 BP 143 / 83 (auto/); jp6 23:22 Pulse 72 MON; Pulse Ox 98% ; jp6 23:36 BP 130 / 74 (auto/); jp6 23:37 Pulse 74 MON; Pulse Ox 96% ; jp6 23:47 Pulse 70 MON; Pulse Ox 95% ; jp6 23:51 BP 116 / 75 (auto/); jp6 23:52 Pulse 72 MON; Pulse Ox 94% ; jp6 01/02 00:06 BP 132 / 84 (auto/); jp6 00:07 Pulse 68 MON; Pulse Ox 96% ; jp6 00:21 BP 124 / 81 (auto/); jp6 00:22 Pulse 70 MON; Pulse Ox 95% ; jp6 00:36 BP 120 / 72 (auto/); jp6 00:37 Pulse 70 MON; Pulse Ox 96% ; jp6 00:51 BP 122 / 77 (auto/); jp6 00:52 Pulse 70 MON; Pulse Ox 95% ; jp6 01:06 BP 118 / 75 (auto/); jp6 01:07 Pulse 70 MON; Pulse Ox 93% ; jp6 01:21 BP 123 / 77 (auto/); jp6 01:22 Pulse 70 MON; Pulse Ox 95% ; jp6 01:36 BP 107 / 58 (auto/); jp6 01:37 Pulse 74 MON; Pulse Ox 94% ; jp6 01:51 BP 107 / 65 (auto/); jp6 01:52 Pulse 74 MON; Pulse Ox 94% ; jp6 01/01 22:14 Body Mass Index 34.01 (87.09 kg, 160.02 cm) gr2 MDM: 01/01 22:49 IV Saline Lock ordered. br1 22:49 Physician Primary Care Sports Medicine/Pulse Ox/q 30 min VS ordered. br1 22:49 Rhythm Strip to chart ordered. br1 22:49 Undress patient appropriately for examination ordered. br1 22:49 Ondansetron 4 mg IVP once ordered. br1 22:50 Basic Metabolic Profile Ordered. EDMS 22:50 CBC with Diff Ordered. EDMS 22:50 Cardiac Injury Profile Ordered. EDMS 22:50 Troponin Ordered. EDMS 22:52 BED REQUEST+ADM ordered. EDMS 23:14 Financial registration complete. pm4 23:15 [facility] Payment Agreement was scanned into [employer] and attached to record. pm4 23:48 Basic Metabolic Profile Reviewed. br1 23:48 CBC with Diff Reviewed. br1 23:48 Cardiac Injury Profile Reviewed. br1 23:48 Troponin Reviewed. br1 01/02 00:26 Admission / Observation Status ordered. EDMS 00:27 ECHOCARD,DOPPLER/COLOR FLOW ordered. EDMS 00:27 LOW FAT LOW CHOLESTEROL DIET ordered. EDMS 00:28 CARDIAC MARKER PANEL Ordered. EDMS 00:28 C REACTIVE PROTEIN QUANTITATIV Ordered. EDMS 00:28 ERYTHROCYTE SEDIMENTATION RATE Ordered. EDMS 00:28 COMPLETE BLOOD COUNT Ordered. EDMS 00:28 BASIC METABOLIC PROFILE Ordered. EDMS 00:28 MAGNESIUM LEVEL Ordered. EDMS 00:28 RESPIRATORY PANEL Ordered. EDMS 00:29 PHYSICAL THERAPY EVAL & TREAT ordered. EDMS 06:09 CARDIAC MARKER PANEL Ordered. EDMS 01/03 11:49 T-Sheet-- Draft Copy was scanned into [employer] and attached to record. gb 11:49 ECG/EKG was scanned into [employer] and attached to record. gb 11:50 Trend VS was scanned into [employer] and attached to record. gb Administered Medications: 01/01 23:21 Drug: Ondansetron 4 mg [ondansetron HCl 2 mg/mL intravenous solution (2 mL)] Route: jp6 IVP; Site: right antecubital; Signatures: Dispatcher [employer] EDSerafin Briones, RN RN dwg Neli Ugalde, Reg Reg gb Brielle Marrero,ANDREW paez3 Lizy VenturaRN RN harinder3 Hemanth Hsu MD MD br1 Jasmina OrellanaRN RN jp6 Dane Duron, Reg Reg pm4 The chart was reviewed and I authenticate all verbal orders and agree with the evaluation and treatment provided.Corrections: (The following items were deleted from the chart) 01/02 06:09 00:28 CARDIAC MARKER PANEL ordered. EDWI EDMS 06:56 01/01 22:29 ECG WITH READING ER PHYS+CARDIAG ordered. EDWI EDWI Attachments: 23:15 [facility] [place] Payment Agreement pm4 01/03 11:49 T-Sheet-- Draft Copy gb 11:49 ECG/EKG gb Chart Complete [facility]
--- NOTE | 2017-01-04 14:56 | EDDOCDS ---
Physician Documentation [facility] Name: Freda To Age: 41 yrs Sex: Female : 1975 Arrival Date: 01/01/2017 Time: 22:13 Bed Admit Hold Private MD: Shanna Pcp Disposition: 01/01/17 23:59 Hospitalization ordered by Estelita Painting for Inpatient Admission. Preliminary diagnosis is Chest pain, unspecified. - Bed requested for PCU. - Status is Inpatient Admission. dwg - Condition is Stable. - Problem is new. - Symptoms are unchanged. Historical: - Allergies: Codeine Sulfate; Vicodin; - Home Meds: 1. none - PMHx: Anxiety; Asthma; Bipolar disorder; Depression; Fibromyalgia; Hypertension; Lupus; Rheumatoid Arthritis; - PSHx: Cesearean Section; Hysterectomy; Appendectomy; Cholecystectomy; - Social history: Smoking status: Patient uses tobacco products, heavy tobacco smoker. No barriers to communication noted, The patient speaks fluent Burundian, Speaks appropriately for age. - Family history: Not pertinent. - : The pt / caregiver states he / she is not on anticoagulants. Home medication list is obtained from the patient. - Exposure Risk Screening:: None identified. Vital Signs: 01/01 22:14 BP 179 / 94; Pulse 90; Resp 20 S; Temp 97.4(O); Pulse Ox 96% on R/A; Weight 87.09 kg / gr2 192 lbs (R); Height 5 ft. 3 in. (160.02 cm) (R); Pain 4/10; 22:51 BP 146 / 92 (auto/); jp6 22:52 Pulse 82 MON; Pulse Ox 98% ; jp6 23:06 BP 136 / 72 (auto/); jp6 23:07 Pulse 76 MON; Pulse Ox 97% ; jp6 23:21 BP 143 / 83 (auto/); jp6 23:22 Pulse 72 MON; Pulse Ox 98% ; jp6 23:36 BP 130 / 74 (auto/); jp6 23:37 Pulse 74 MON; Pulse Ox 96% ; jp6 23:47 Pulse 70 MON; Pulse Ox 95% ; jp6 23:51 BP 116 / 75 (auto/); jp6 23:52 Pulse 72 MON; Pulse Ox 94% ; jp6 01/02 00:06 BP 132 / 84 (auto/); jp6 00:07 Pulse 68 MON; Pulse Ox 96% ; jp6 00:21 BP 124 / 81 (auto/); jp6 00:22 Pulse 70 MON; Pulse Ox 95% ; jp6 00:36 BP 120 / 72 (auto/); jp6 00:37 Pulse 70 MON; Pulse Ox 96% ; jp6 00:51 BP 122 / 77 (auto/); jp6 00:52 Pulse 70 MON; Pulse Ox 95% ; jp6 01:06 BP 118 / 75 (auto/); jp6 01:07 Pulse 70 MON; Pulse Ox 93% ; jp6 01:21 BP 123 / 77 (auto/); jp6 01:22 Pulse 70 MON; Pulse Ox 95% ; jp6 01:36 BP 107 / 58 (auto/); jp6 01:37 Pulse 74 MON; Pulse Ox 94% ; jp6 01:51 BP 107 / 65 (auto/); jp6 01:52 Pulse 74 MON; Pulse Ox 94% ; jp6 01/01 22:14 Body Mass Index 34.01 (87.09 kg, 160.02 cm) gr2 MDM: 01/01 22:49 IV Saline Lock ordered. br1 22:49 Vault Person/Pulse Ox/q 30 min VS ordered. br1 22:49 Rhythm Strip to chart ordered. br1 22:49 Undress patient appropriately for examination ordered. br1 22:49 Ondansetron 4 mg IVP once ordered. br1 22:50 Basic Metabolic Profile Ordered. EDMS 22:50 CBC with Diff Ordered. EDMS 22:50 Cardiac Injury Profile Ordered. EDMS 22:50 Troponin Ordered. EDMS 22:52 BED REQUEST+ADM ordered. EDMS 23:14 Financial registration complete. pm4 23:15 [facility] Payment Agreement was scanned into PayRange and attached to record. pm4 23:48 Basic Metabolic Profile Reviewed. br1 23:48 CBC with Diff Reviewed. br1 23:48 Cardiac Injury Profile Reviewed. br1 23:48 Troponin Reviewed. br1 01/02 00:26 Admission / Observation Status ordered. EDMS 00:27 ECHOCARD,DOPPLER/COLOR FLOW ordered. EDMS 00:27 LOW FAT LOW CHOLESTEROL DIET ordered. EDMS 00:28 CARDIAC MARKER PANEL Ordered. EDMS 00:28 C REACTIVE PROTEIN QUANTITATIV Ordered. EDMS 00:28 ERYTHROCYTE SEDIMENTATION RATE Ordered. EDMS 00:28 COMPLETE BLOOD COUNT Ordered. EDMS 00:28 BASIC METABOLIC PROFILE Ordered. EDMS 00:28 MAGNESIUM LEVEL Ordered. EDMS 00:28 RESPIRATORY PANEL Ordered. EDMS 00:29 PHYSICAL THERAPY EVAL & TREAT ordered. EDMS 06:09 CARDIAC MARKER PANEL Ordered. EDMS 01/03 11:49 T-Sheet-- Draft Copy was scanned into PayRange and attached to record. gb 11:49 ECG/EKG was scanned into [employer]pple[employer] and attached to record. gb 11:50 Trend VS was scanned into MED[employer] and attached to record. gb Administered Medications: 01/01 23:21 Drug: Ondansetron 4 mg [ondansetron HCl 2 mg/mL intravenous solution (2 mL)] Route: jp6 IVP; Site: right antecubital; Signatures: Dispatcher [employer] EDSerafin Briones, RN RN dwg Neli Ugalde, Reg Reg gb Brielle Marrero,ANDREW paez3 Lizy VenturaRN RN harinder3 Hemanth Hsu MD MD br1 Jasmina OrellanaRN RN jp6 Dane Duron, Reg Reg pm4 The chart was reviewed and I authenticate all verbal orders and agree with the evaluation and treatment provided.Corrections: (The following items were deleted from the chart) 01/02 06:09 00:28 CARDIAC MARKER PANEL ordered. EDRI EDMS 06:56 01/01 22:29 ECG WITH READING ER PHYS+CARDIAG ordered. EDRI EDRI Attachments: 23:15 [facility] [place] pm4 01/03 11:49 T-Sheet-- Draft Copy gb 11:49 ECG/EKG gb Chart Complete [facility]
--- NOTE | 2017-01-04 14:57 | EDDOCDS ---
Nurse's Notes [facility] Name: Freda To Age: 41 yrs Sex: Female : 1975 Arrival Date: 01/01/2017 Time: 22:13 Bed Admit Hold Private MD: Shanna Pcp Diagnosis: Chest pain, unspecified Presentation: 01/01 22:21 Presenting complaint: Patient states: Was outside smoking awaiting a cab home after jo3 discharge. Got suddenly nauseated and vomited twice. Adult Sepsis Screening: The patient does not have new or worsening altered mentation. Patient's respiratory rate is less than 22. Systolic blood pressure is greater than 100. Patient has a qSOFA score of 0- Negative Sepsis Screen. Suicide/Homicide risk assessment- the patient denies having any suicidal and/or homicidal ideations and does not present with any other emotional, behavioral or mental health complaints. Status: Patient is not a care services manager or dependent. Transition of care: patient was not received from another setting of care. 22:21 Method Of Arrival: Walkin/Carried/Asstd jo3 22:23 Acuity: NATALIA Level 3 jo3 Triage Assessment: 22:23 General: Appears in no apparent distress, uncomfortable, Behavior is appropriate for jo3 age, cooperative. HIV screening NA for this visit Offered previously. Neurological: Level of Consciousness is awake, alert, Oriented to person, place, time. Respiratory: Airway is patent Respiratory effort is even, unlabored. Derm: Skin is pink, warm & dry. Historical: - Allergies: Codeine Sulfate; Vicodin; - Home Meds: 1. none - PMHx: Anxiety; Asthma; Bipolar disorder; Depression; Fibromyalgia; Hypertension; Lupus; Rheumatoid Arthritis; - PSHx: Cesearean Section; Hysterectomy; Appendectomy; Cholecystectomy; - Social history: Smoking status: Patient uses tobacco products, heavy tobacco smoker. No barriers to communication noted, The patient speaks fluent [place]an, Speaks appropriately for age. - Family history: Not pertinent. - : The pt / caregiver states he / she is not on anticoagulants. Home medication list is obtained from the patient. - Exposure Risk Screening:: None identified. Screenin:47 Screening information is obtained from the patient. Fall risk: No risks identified. jp6 Assistance ADL's: requires no assistance with activities of daily living. Abuse/DV Screen: The patient / caregiver reports he/she is: not in a situation that causes fear, pain or injury. Nutritional screening: No deficits noted. home support is adequate. Assessment: 22:34 General: Appears Behavior is anxious. Pain: Location: chest Pain currently is 8 out of lf1 10 on a pain scale. Respiratory: Respiratory pattern is tachypnea. GI: Reports vomiting. 23:30 Reassessment: Patient appears in no apparent distress at this time. Patient states jp6 symptoms have improved. Pain: Location: chest Pain currently is 2 out of 10 on a pain scale. Cardiovascular: Capillary refill < 3 seconds Heart tones S1 S2 present Rhythm is sinus rhythm No ectopy. Respiratory: Airway is patent Respiratory effort is even, unlabored, Respiratory pattern is regular, symmetrical. GI: No deficits noted. Derm: Skin is pink, warm & dry. 01/02 00:23 Reassessment: Patient appears in no apparent distress at this time. Patient states jp6 symptoms have improved. General: Behavior is appropriate for age, cooperative. Pain: Denies pain. Neurological: No deficits noted. Neurological: No deficits noted. Level of Consciousness is awake, alert, Oriented to person, place, time. EENT: No deficits noted. Cardiovascular: Rhythm is sinus rhythm Chest pain. Respiratory: Airway is patent Respiratory effort is even, unlabored, Respiratory pattern is regular, symmetrical, Breath sounds are clear bilaterally. GI: Bowel sounds present X 4 quads. Abd is soft and non tender X 4 quads. : No deficits noted. Derm: Skin is pink, warm & dry. Musculoskeletal: No deficits noted. 01:57 Reassessment: Patient appears in no apparent distress at this time. Patient states jp6 symptoms have improved. General: Appears in no apparent distress, comfortable, Behavior is appropriate for age, cooperative. Pain: Location: chest Pain currently is 2 out of 10 on a pain scale. Cardiovascular: Rhythm is sinus rhythm No ectopy. Respiratory: Airway is patent Respiratory effort is even, unlabored, Respiratory pattern is regular, symmetrical. Derm: Skin is pink, warm & dry. Vital Signs: 01/01 22:14 BP 179 / 94; Pulse 90; Resp 20 S; Temp 97.4(O); Pulse Ox 96% on R/A; Weight 87.09 kg gr2 (R); Height 5 ft. 3 in. (160.02 cm) (R); Pain 4/10; 22:51 BP 146 / 92 (auto/); jp6 22:52 Pulse 82 MON; Pulse Ox 98% ; jp6 23:06 BP 136 / 72 (auto/); jp6 23:07 Pulse 76 MON; Pulse Ox 97% ; jp6 23:21 BP 143 / 83 (auto/); jp6 23:22 Pulse 72 MON; Pulse Ox 98% ; jp6 23:36 BP 130 / 74 (auto/); jp6 23:37 Pulse 74 MON; Pulse Ox 96% ; jp6 23:47 Pulse 70 MON; Pulse Ox 95% ; jp6 23:51 BP 116 / 75 (auto/); jp6 23:52 Pulse 72 MON; Pulse Ox 94% ; jp6 02/02 00:06 BP 132 / 84 (auto/); jp6 00:07 Pulse 68 MON; Pulse Ox 96% ; jp6 00:21 BP 124 / 81 (auto/); jp6 00:22 Pulse 70 MON; Pulse Ox 95% ; jp6 00:36 BP 120 / 72 (auto/); jp6 00:37 Pulse 70 MON; Pulse Ox 96% ; jp6 00:51 BP 122 / 77 (auto/); jp6 00:52 Pulse 70 MON; Pulse Ox 95% ; jp6 01:06 BP 118 / 75 (auto/); jp6 01:07 Pulse 70 MON; Pulse Ox 93% ; jp6 01:21 BP 123 / 77 (auto/); jp6 01:22 Pulse 70 MON; Pulse Ox 95% ; jp6 01:36 BP 107 / 58 (auto/); jp6 01:37 Pulse 74 MON; Pulse Ox 94% ; jp6 01:51 BP 107 / 65 (auto/); jp6 01:52 Pulse 74 MON; Pulse Ox 94% ; jp6 01/01 22:14 Body Mass Index 34.01 (87.09 kg, 160.02 cm) gr2 Vitals: 01/01 22:14 Log In Time: January 01, 2017 at 22:14. gr2 ED Course: 22:14 Patient visited by Maye Groves. gr2 22:14 No Pcp is Private Physician. gr2 22:14 Patient moved to Waiting gr2 22:16 Patient visited by Maye Groves. gr2 22:17 Patient moved to Pre RCE gr2 22:23 Triage Initiated jo3 22:43 Hemanth Hsu MD is Attending Physician. br1 22:43 Patient moved to 14 lf1 22:48 Patient visited by Hemanth Hsu MD. br1 23:04 Jasmina Orellana,RN is Primary Nurse. jp6 23:15 [facility] Payment Agreement was scanned into Neo [employer]M and attached to record. pm4 23:47 The patient / caregiver is instructed regarding the plan of care and ED course. Cardiac jp6 monitor on. Pulse ox on. NIBP on. 23:47 Inserted saline lock: 20 gauge in right antecubital area and blood collected. No jp6 procedures done that require assistance. Labs drawn. (by ED staff). Sent per order to lab. 23:48 Patient visited by Jasmina Orellana,ANDREW. jp6 23:59 Estelita Painting is Hospitalizing Provider. br1 02 00:40 Patient moved to Admit Hold sls1 02:40 Patient moved to 21 tm5 04:17 Patient moved to Admit Hold sls1 02/03 11:49 T-Sheet-- Draft Copy was scanned into [employer] and attached to record. gb 11:49 ECG/EKG was scanned into [employer] and attached to record. gb 11:50 Trend VS was scanned into [employer] and attached to record. gb Administered Medications: 01/01 23:21 Drug: Ondansetron 4 mg [ondansetron HCl 2 mg/mL intravenous solution (2 mL)] Route: jp6 IVP; Site: right antecubital; Attachments: 11:50 Trend VS gb Order Results: Lab Order: Basic Metabolic Profile; SPEC'M 01/01/17 22:58 Test: GLUCOSE, FASTING; Value: 93; Range: 70-105; Units: MG/DL; Status: F Test: BLOOD UREA NITROGEN; Value: 10; Range: 7-18; Units: MG/DL; Status: F Test: CREATININE FOR GFR; Value: 1.00; Range: 0.55-1.02; Units: MG/DL; Status: F Test: GLOMERULAR FILTRATION RATE; Value: > 60.0; Range: >58; Status: F Test: SODIUM LEVEL; Value: 143; Range: 136-145; Units: MEQ/L; Status: F Test: POTASSIUM SERUM; Value: 3.7; Range: 3.5-5.1; Units: MEQ/L; Status: F Test: CHLORIDE LEVEL; Value: 108; Range: 98-107; Abnormal: Above high normal; Units: MEQ/L; Status: F Test: CARBON DIOXIDE LEVEL; Value: 25; Range: 21-32; Units: MEQ/L; Status: F Test: ANION GAP; Value: 10; Range: 8-16; Units: MEQ/L; Status: F Test: CALCIUM LEVEL; Value: 8.9; Range: 8.5-10.1; Units: MG/DL; Status: F Test Note: ; Units are mL/min/1.73 m2 Chronic Kidney Disease Staging per NKF: Stage I & II GFR >=60 Normal to Mildly Decreased Stage III GFR 30-59 Moderately Decreased Stage IV GFR 15-29 Severely Decreased Stage V GFR <15 Very Little GFR Left ESRD GFR <15 on ROUNDHOUSE FIRER/FIREMAN Lab Order: CBC with Diff; SPEC'M 01/01/17 22:58 Test: WHITE BLOOD COUNT; Value: 8.3; Range: 4.0-10.0; Units: K/mm3; Status: F Test: RED BLOOD COUNT; Value: 4.74; Range: 4.00-5.40; Units: M/mm3; Status: F Test: HEMOGLOBIN; Value: 14.5; Range: 12.0-16.0; Units: g/dl; Status: F Test: HEMATOCRIT; Value: 41.7; Range: 36.0-47.0; Units: %; Status: F Test: MEAN CORPUSCULAR VOLUME; Value: 88.0; Range: 80.0-96.0; Units: fl; Status: F Test: MEAN CORPUSCULAR HEMOGLOBIN; Value: 30.5; Range: 27.0-33.0; Units: pg; Status: F Test: MEAN CORPUSCULAR HGB CONC; Value: 34.7; Range: 32.0-36.5; Units: g/dl; Status: F Test: RED CELL DISTRIBUTION WIDTH; Value: 12.5; Range: 11.5-14.5; Units: %; Status: F Test: PLATELET COUNT, AUTOMATED; Value: 246; Range: 150-450; Units: k/mm3; Status: F Test: NEUTROPHILS %; Value: 66.5; Range: 36.0-66.0; Abnormal: Above high normal; Units: %; Status: F Test: LYMPH %; Value: 26.0; Range: 24.0-44.0; Units: %; Status: F Test: MONO %; Value: 4.5; Range: 0.0-5.0; Units: %; Status: F Test: EOS %; Value: 0.9; Range: 0.0-3.0; Units: %; Status: F Test: BASO %; Value: 0.6; Range: 0.0-1.0; Units: %; Status: F Test: LARGE UNSTAINED CELL %; Value: 1.5; Range: 0.0-4.0; Units: %; Status: F Test: NEUTROPHILS #; Value: 5.6; Range: 1.8-7.7; Units: K/mm3; Status: F Test: LYMPH #; Value: 2.2; Range: 1.5-4.5; Units: K/mm3; Status: F Test: MONO #; Value: 0.4; Range: 0.0-0.8; Units: K/mm3; Status: F Test: EOS #; Value: 0.1; Range: 0.0-0.50; Units: K/mm3; Status: F Test: BASO #; Value: 0.0; Range: 0.0-0.2; Units: K/mm3; Status: F Test: LARGE UNSTAINED CELL #; Value: 0.1; Range: 0.0-0.4; Units: K/mm3; Status: F Lab Order: Cardiac Injury Profile; SPEC'M 01/01/17 22:58 Test: CPK CREATINE PHOSPHOKINASE; Value: 65; Range: 26-192; Units: U/L; Status: F Test: CK-MB VALUE MASS; Value: 1.0; Range: 0.0-3.6; Units: NG/ML; Status: F Test: MB/CK RELATIVE INDEX; Value: 1.53; Range: < OR =4; Status: F Test Note: ; DIAGNOSIS CRITERIA MMB ng/ml Relative Index (RI) NON-AMI < or = 5 N/A VELASQUEZ ZONE > 5 < or = 4 AMI > 5 > 4 Lab Order: Troponin; [facility]01/01/17 22:58 Test: TROPONIN I; Value: < 0.02; Range: < 0.10; Units: NG/ML; Status: F Test Note: ; Troponin I Reference Interval for [facility] ComAbility LOCI: 99th Percentile= 0.00-0.045 ng/ml Risk Stratification: <= 0.10 ng/ml Decreased Risk for Adverse Clinical Events. 0.10-1.50 ng/ml Increased Risk for Adverse Clinical Events. Evaluation of additional criterion and/or repeat testing in 2-6 hours is suggested to rule out myocardial damage. >= 1.50 ng/ml Indicative of Myocardial Injury. Lab Order: CARDIAC MARKER PANEL; [facility]01/02/17 12:12 Test: CPK CREATINE PHOSPHOKINASE; Value: 77; Range: 26-192; Units: U/L; Status: F Test: CK-MB VALUE MASS; Value: 1.0; Range: 0.0-3.6; Units: NG/ML; Status: F Test: MB/CK RELATIVE INDEX; Value: 1.29; Range: < OR =4; Status: F Test: TROPONIN I; Value: < 0.02; Range: < 0.10; Units: NG/ML; Status: F Test Note: ; DIAGNOSIS CRITERIA MMB ng/ml Relative Index (RI) NON-AMI < or = 5 N/A VELASQUEZ ZONE > 5 < or = 4 AMI > 5 > 4 Lab Order: C REACTIVE PROTEIN QUANTITATIV; 01/02/17 06:35 Test: C REACTIVE PROTEIN QUANTITATIV; Value: < 0.30; Range: 0.00-0.30; Units: MG/DL; Status: F Lab Order: ERYTHROCYTE SEDIMENTATION RATE; 01/02/17 06:35 Test: ERYTHROCYTE SEDIMENTATION RATE; Value: 11; Range: 0-20; Units: mm/hr; Status: F Lab Order: COMPLETE BLOOD COUNT; 01/02/17 06:35 Test: WHITE BLOOD COUNT; Value: 7.0; Range: 4.0-10.0; Units: K/mm3; Status: F Test: RED BLOOD COUNT; Value: 4.55; Range: 4.00-5.40; Units: M/mm3; Status: F Test: HEMOGLOBIN; Value: 14.0; Range: 12.0-16.0; Units: g/dl; Status: F Test: HEMATOCRIT; Value: 40.5; Range: 36.0-47.0; Units: %; Status: F Test: MEAN CORPUSCULAR VOLUME; Value: 89.1; Range: 80.0-96.0; Units: fl; Status: F Test: MEAN CORPUSCULAR HEMOGLOBIN; Value: 30.9; Range: 27.0-33.0; Units: pg; Status: F Test: MEAN CORPUSCULAR HGB CONC; Value: 34.6; Range: 32.0-36.5; Units: g/dl; Status: F Test: RED CELL DISTRIBUTION WIDTH; Value: 12.6; Range: 11.5-14.5; Units: %; Status: F Test: PLATELET COUNT, AUTOMATED; Value: 226; Range: 150-450; Units: k/mm3; Status: F Lab Order: BASIC METABOLIC PROFILE; [facility] 01/02/17 06:35 Test: GLUCOSE, FASTING; Value: 84; Range: 70-105; Units: MG/DL; Status: F Test: BLOOD UREA NITROGEN; Value: 11; Range: 7-18; Units: MG/DL; Status: F Test: CREATININE FOR GFR; Value: 0.90; Range: 0.55-1.02; Units: MG/DL; Status: F Test: GLOMERULAR FILTRATION RATE; Value: > 60.0; Range: >58; Status: F Test: SODIUM LEVEL; Value: 142; Range: 136-145; Units: MEQ/L; Status: F Test: POTASSIUM SERUM; Value: 4.0; Range: 3.5-5.1; Units: MEQ/L; Status: F Test: CHLORIDE LEVEL; Value: 110; Range: 98-107; Abnormal: Above high normal; Units: MEQ/L; Status: F Test: CARBON DIOXIDE LEVEL; Value: 26; Range: 21-32; Units: MEQ/L; Status: F Test: ANION GAP; Value: 6; Range: 8-16; Abnormal: Below low normal; Units: MEQ/L; Status: F Test: CALCIUM LEVEL; Value: 8.4; Range: 8.5-10.1; Abnormal: Below low normal; Units: MG/DL; Status: F Test Note: ; Units are mL/min/1.73 m2 Chronic Kidney Disease Staging per NKF: Stage I & II GFR >=60 Normal to Mildly Decreased Stage III GFR 30-59 Moderately Decreased Stage IV GFR 15-29 Severely Decreased Stage V GFR <15 Very Little GFR Left ESRD GFR <15 on ROUNDHOUSE FIRER/FIREMAN Lab Order: MAGNESIUM LEVEL; SPEC'M 01/02/17 06:35 Test: MAGNESIUM LEVEL; Value: 2.2; Range: 1.8-2.4; Units: MG/DL; Status: F Lab Order: CARDIAC MARKER PANEL; SPEC'M 01/02/17 06:35 Test: CPK CREATINE PHOSPHOKINASE; Value: 81; Range: 26-192; Units: U/L; Status: F Test: CK-MB VALUE MASS; Value: 1.0; Range: 0.0-3.6; Units: NG/ML; Status: F Test: MB/CK RELATIVE INDEX; Value: 1.23; Range: < OR =4; Status: F Test: TROPONIN I; Value: < 0.02; Range: < 0.10; Units: NG/ML; Status: F Test Note: ; DIAGNOSIS CRITERIA MMB ng/ml Relative Index (RI) NON-AMI < or = 5 N/A VELASQUEZ ZONE > 5 < or = 4 AMI > 5 > 4 Outcome: 01/01 23:59 Decision to Hospitalize by Provider. br1 01/02 13:55 Patient left the ED. [facility] Signatures: Serafin Bull RN RN dwg Neli Ugalde, Reg Reg Lizy Ventura RN RN jo3 Mireille Lyons RN RN lf1 Hemanth Hsu MD MD br1 Arlette Hussein RN RN sls1 Maye Groves gr2 Jasmina OrellanaRN RN jp6 Lisa Esquivel RN RN tm5 Dane Duron, Reg Reg pm4 Corrections: (The following items were deleted from the chart) 01/01 22:25 22:21 Acuity: NATALIA Level 4 jo3 jo3 Chart Complete MTDD
== END 2017-01-03 10:28 | disposition home or self-care (01) ==
LOC: M ED 22:13 → M PCU 22:14 → M ED INP 01-02 00:19 → UNDOADMOB 01-02 00:19 → M ED INP 01-02 13:38 → M PCU 01-02 13:38 → UNDODISOB 01-03 10:28
PROVIDERS: ADMIT Hospitalist; ATTEND Internal Medicine
DX: R07.89 Other chest pain (principal); F41.9 Anxiety disorder, unspecified; F31.9 Bipolar disorder, unspecified; M32.9 Systemic lupus erythematosus, unspecified; M06.9 Rheumatoid arthritis, unspecified; I10 Essential (primary) hypertension; J45.909 Unspecified asthma, uncomplicated; M79.7 Fibromyalgia; R11.2 Nausea with vomiting, unspecified; R61 Generalized hyperhidrosis; F17.210 Nicotine dependence, cigarettes, uncomplicated; Z88.5 Allergy status to narcotic agent
CPT/HCPCS: 36415; 71020; 71275; 80048; 80076; 82550; 82553; 83690; 83735; 84484; 85025; 85027; 85652; 86140; 87804; 93005; 93041; 93306; 94640; 96374; 96375; 99284; 99285; C9113; G0378; J2405; Q9967

== ENCOUNTER → 2017-01-16 | Outpatient (REF) | payer MEDICARE, MEDICAID ==
[~2017-01-16] MED LIST: ACET50TAOT PO; ALBU17IN INH
[2017-01-16 12:39] LABS: CHOLESTEROL LEVEL 208 MG/DL (<200); FREE T4 1.13 NG/DL (0.76-1.46); TRIGLYCERIDES LEVEL 260 MG/DL (<150)
== END ==
LOC: M SFHCLERA 11:40 → M SFHCCLAY 11:40
PROVIDERS: ATTEND Family Medicine
DX: F31.30 Bipolar disorder, current episode depressed, mild or moderate severity, unspecified (principal); Z13.1 Encounter for screening for diabetes mellitus; Z87.448 Personal history of other diseases of urinary system; Z87.39 Personal history of other diseases of the musculoskeletal system and connective tissue
CPT/HCPCS: 80061; 83036; 84439; 84443; 86038; 86431; G0463

== ENCOUNTER → 2017-01-22 | Outpatient (CLI) | payer MEDICARE, MEDICAID ==
--- NOTE | 2017-01-27 10:58 | REPMRS ---
Patient History The patient states she has not had a clinical breast exam in over a year. No known family history of cancer. Digital Mammo Screening Bilat: January 22, 2017 - Exam #: [id number] Bilateral CC and MLO view(s) were taken. Technologist: Lachelle Lopez, Technologist Prior study comparison: May 16, 2013, digital bilateral screening mammo, performed at [facility]. FINDINGS: There are scattered fibroglandular densities. There has been no change in the appearance of the mammogram from the prior studies. There is a needle biopsy marker clip in the left breast. There is a mild amount of scattered fibroglandular density which is fairly symmetric. There is no interval development of dominant mass, architectural distortion, or clustered microcalcification suggestive of malignancy. ASSESSMENT: BI-RADS/ACR category 1 mammogram. Negative. Recommendation Routine screening mammogram in 1 year (for women over age 40). This mammogram was interpreted with the aid of an FDA-approved computer-aided dectection system. Electronically Signed By: Macario Levin MD 01/27/17 [id number]
== END ==
LOC: M RAD 14:09
PROVIDERS: ATTEND Family Medicine
DX: Z12.31 Encounter for screening mammogram for malignant neoplasm of breast (principal); F31.30 Bipolar disorder, current episode depressed, mild or moderate severity, unspecified; Z87.39 Personal history of other diseases of the musculoskeletal system and connective tissue
CPT/HCPCS: 81001; 82043; G0202

== ENCOUNTER → 2017-01-29 | Outpatient (REF) | payer MEDICARE, MEDICAID | LOC: M SFHCLERA 16:42 | PROVIDERS: ATTEND Family Medicine | DX: J44.1 Chronic obstructive pulmonary disease with (acute) exacerbation (principal) ==

== ENCOUNTER → 2017-02-04 | Outpatient (CLI) | payer MEDICARE, MEDICAID ==
--- NOTE | 2017-02-04 18:52 | REP ---
CHEST, TWO VIEWS: COMPARISON: 01/01/2017 There is no evidence of acute infiltrate. No pleural effusion is seen. The heart is normal in size. The mediastinal silhouette is unremarkable. The visualized osseous structures are intact. IMPRESSION: No acute pulmonary disease. Signed by Serafin Alas MD 02/04/2017 08:12 P
== END ==
LOC: M LRY 16:52
PROVIDERS: ATTEND Nurse Practitioner Family
DX: R06.02 Shortness of breath (principal)
CPT/HCPCS: 71020; 87804; 94640; G0463

== ENCOUNTER → 2017-02-20 | Outpatient (CLI) | payer MEDICARE, MEDICAID | LOC: M LRY 13:29 | PROVIDERS: ATTEND Family Medicine | DX: M25.562 Pain in left knee (principal) ==

== ENCOUNTER → 2017-03-25 | Outpatient (CLI) | payer MEDICARE, MEDICAID ==
--- NOTE | 2017-03-25 14:54 | REP ---
REASON: Pain. PRIORS: None. FINDINGS: The compartments are symmetric and relatively well maintained. There is no acute fracture or destructive osseous lesion. Tiny minimal marginal osteophytes are seen arising from the articular surface of the patella. Signed by Janes Chua DO 03/25/2017 03:02 P
== END ==
LOC: M LRY 14:04
PROVIDERS: ATTEND Family Medicine
DX: M25.762 Osteophyte, left knee (principal); M25.562 Pain in left knee
CPT/HCPCS: 73564; G0463

== ENCOUNTER → 2017-04-08 | Outpatient (REF) | payer MEDICARE, MEDICAID | LOC: M SFHCLERA 10:06 | PROVIDERS: ATTEND Family Medicine | DX: N75.0 Cyst of Bartholin's gland (principal); R03.0 Elevated blood-pressure reading, without diagnosis of hypertension; F17.210 Nicotine dependence, cigarettes, uncomplicated; Z11.3 Encounter for screening for infections with a predominantly sexual mode of transmission; N90.89 Other specified noninflammatory disorders of vulva and perineum | CPT/HCPCS: 87210; 87491; 87591; G0463 ==

== ENCOUNTER → 2017-04-21 | Outpatient (REF) | payer MEDICARE, MEDICAID | LOC: M SFHCLERA 08:46 | PROVIDERS: ATTEND Family Medicine | DX: R76.8 Other specified abnormal immunological findings in serum (principal) | CPT/HCPCS: 85652; 86038; 86140; 86225; 86255; 86431; G0463 ==

== ENCOUNTER → 2017-11-27 | Outpatient (REF) | payer MEDICARE, MEDICAID ==
[2017-11-27 12:12] LABS: ALBUMIN 3.9 GM/DL (3.2-5.2); ANION GAP 6 MEQ/L (8-16); BLOOD UREA NITROGEN 9 MG/DL (7-18); CALCIUM LEVEL 8.6 MG/DL (8.5-10.1); CARBON DIOXIDE LEVEL 28 MEQ/L (21-32); CHLORIDE LEVEL 109 MEQ/L (98-107); CHOLESTEROL LEVEL 188 MG/DL (<200); CREATININE FOR GFR 0.79 MG/DL (0.55-1.02); GLOMERULAR FILTRATION RATE > 60.0 (>58); GLUCOSE, FASTING 94 MG/DL (70-105); PHOSPHORUS LEVEL 2.9 MG/DL (2.5-4.9); POTASSIUM SERUM 4.5 MEQ/L (3.5-5.1); SODIUM LEVEL 143 MEQ/L (136-145); TRIGLYCERIDES LEVEL 113 MG/DL (<150)
== END ==
LOC: M SFHCLERA 09:01
PROVIDERS: ATTEND Family Medicine
DX: I10 Essential (primary) hypertension (principal); E78.5 Hyperlipidemia, unspecified

== ENCOUNTER → 2021-07-10 | Outpatient (REF) | payer MEDICARE, MEDICAID ==
[~2021-07-10] MED LIST changes: +ACET500T15 PO; -ACET50TAOT PO
[2021-07-10 17:23] LABS: BASO # 0.1 10^3/uL (0.0-0.2); BASO % 1.2 % (0.0-1.0); EOS # 0.1 10^3/uL (0.0-0.5); EOS % 1.2 % (0.0-3.0); HEMATOCRIT 43.8 % (36.0-47.0); HEMOGLOBIN 14.6 g/dl (12.0-15.5); LYMPH # 1.7 10^3/uL (1.5-5.0); LYMPH % 24.6 % (24.0-44.0); MEAN CORPUSCULAR HEMOGLOBIN 31.7 pg (27.0-33.0); MEAN CORPUSCULAR HGB CONC 33.3 g/dl (32.0-36.5); MONO # 0.4 10^3/uL (0.0-0.8); MONO % 6.4 % (2.0-8.0); NEUTROPHILS # 4.6 10^3/uL (1.5-8.5); NEUTROPHILS % 66.5 % (36.0-66.0); PLATELET COUNT, AUTOMATED 281 10^3/uL (150-450); RED BLOOD COUNT 4.61 10^6/uL (4.00-5.40); WHITE BLOOD COUNT 6.9 10^3/uL (4.0-10.0)
[2021-07-10 17:52] LABS: CREATININE,RANDOM URINE 77.8 MG/DL; TOTAL PROTEIN,RANDOM URINE 7.5 MG/DL (0.0-12.0)
[2021-07-10 17:54] LABS: ALBUMIN 3.9 GM/DL (3.2-5.2); ALT/SGPT 28 U/L (12-78); BILIRUBIN,TOTAL 0.3 MG/DL (0.2-1.0); BLOOD UREA NITROGEN 13 MG/DL (7-18); CALCIUM LEVEL 8.7 MG/DL (8.5-10.1); CARBON DIOXIDE LEVEL 25 MEQ/L (21-32); CHLORIDE LEVEL 109 MEQ/L (98-107); COMPLEMENT C3 104 MG/DL (90-180); COMPLEMENT C4 27 MG/DL (10-40); CPK CREATINE PHOSPHOKINASE 155 U/L (26-192); CREATININE FOR GFR 0.74 MG/DL (0.55-1.30); GLOMERULAR FILTRATION RATE > 60.0 (>58); GLUCOSE, FASTING 95 MG/DL (70-100); POTASSIUM SERUM 4.2 MEQ/L (3.5-5.1); SODIUM LEVEL 141 MEQ/L (136-145); TOTAL PROTEIN 6.7 GM/DL (6.4-8.2)
[2021-07-10 18:17] LABS: ERYTHROCYTE SEDIMENTATION RATE 5 mm/hr (0-20)
[2021-07-10 18:29] LABS: APPEARANCE, URINE HAZY (CLEAR); BACTERIA, URINE AUTO NEGATIVE (NEGATIVE); BILIRUBIN, URINE AUTO NEGATIVE (NEGATIVE); BLOOD, URINE BLOOD NEGATIVE (NEGATIVE); COLOR, URINE YELLOW (YELLOW); GLUCOSE, URINE (UA) AUTO NEGATIVE (NEGATIVE); KETONE, URINE AUTO NEGATIVE (NEGATIVE); LEUKOCYTE ESTERASE, URINE AUTO NEGATIVE (NEGATIVE); MUCUS, URINE SMALL (NEGATIVE); NITRITE, URINE AUTO NEGATIVE (NEGATIVE); PROTEIN, URINE AUTO NEGATIVE (NEGATIVE); RBC, URINE AUTO 0 /HPF (0-3); SPECIFIC GRAVITY URINE AUTO 1.011 (1.002-1.035); SQUAMOUS EPITHELIAL CELL UR AU 1 /HPF (0-6); UROBILINOGEN, URINE AUTO 0.2 mg/dL (0.0-2.0); WBC, URINE AUTO 1 /HPF (0-3)
== END ==
LOC: M SFHCRHEU 11:47
PROVIDERS: ATTEND Internal Medicine Rheumatology
DX: R76.8 Other specified abnormal immunological findings in serum (principal)
CPT/HCPCS: 36415; 80053; 81001; 82085; 82550; 82570; 84156; 85025; 85652; 86140; 86160; G0463

== ENCOUNTER → 2022-05-24 | Outpatient (REF) | payer MEDICARE, MEDICAID ==
[2022-05-24 13:09] LABS: BASO # 0.1 10^3/uL (0.0-0.2); BASO % 0.9 % (0.0-1.0); EOS # 0.2 10^3/uL (0.0-0.5); EOS % 2.2 % (0.0-3.0); HEMATOCRIT 44.1 % (36.0-47.0); HEMOGLOBIN 14.9 g/dl (12.0-15.5); LYMPH # 1.8 10^3/uL (1.5-5.0); MEAN CORPUSCULAR HGB CONC 33.8 g/dl (32.0-36.5); MEAN CORPUSCULAR VOLUME 91.7 fl (80.0-96.0); MONO # 0.4 10^3/uL (0.0-0.8); MONO % 5.3 % (2.0-8.0); NEUTROPHILS # 4.6 10^3/uL (1.5-8.5); NEUTROPHILS % 65.5 % (36.0-66.0); PLATELET COUNT, AUTOMATED 264 10^3/uL (150-450); RED BLOOD COUNT 4.81 10^6/uL (4.00-5.40)
[2022-05-24 13:20] LABS: APPEARANCE, URINE CLEAR (CLEAR); BACTERIA, URINE AUTO 1+ (NEGATIVE); BILIRUBIN, URINE AUTO NEGATIVE (NEGATIVE); BLOOD, URINE BLOOD NEGATIVE (NEGATIVE); COLOR, URINE STRAW (YELLOW); GLUCOSE, URINE (UA) AUTO NEGATIVE (NEGATIVE); KETONE, URINE AUTO NEGATIVE (NEGATIVE); LEUKOCYTE ESTERASE, URINE AUTO NEGATIVE (NEGATIVE); NITRITE, URINE AUTO NEGATIVE (NEGATIVE); PROTEIN, URINE AUTO NEGATIVE (NEGATIVE); RBC, URINE AUTO 0 /HPF (0-3); SPECIFIC GRAVITY URINE AUTO 1.004 (1.002-1.035); SQUAMOUS EPITHELIAL CELL UR AU 0 /HPF (0-6); UROBILINOGEN, URINE AUTO 0.2 mg/dL (0.0-2.0); WBC, URINE AUTO 0 /HPF (0-3)
[2022-05-24 13:35] LABS: ERYTHROCYTE SEDIMENTATION RATE 8 mm/hr (0-20)
[2022-05-24 13:39] LABS: CREATININE,RANDOM URINE 25.3 MG/DL; TOTAL PROTEIN,RANDOM URINE < 5.0 MG/DL (0.0-12.0)
[2022-05-24 13:44] LABS: BLOOD UREA NITROGEN 12 MG/DL (7-18); CARBON DIOXIDE LEVEL 28 MEQ/L (21-32); CHLORIDE LEVEL 110 MEQ/L (98-107); CREATININE FOR GFR 0.78 MG/DL (0.55-1.30); GLOMERULAR FILTRATION RATE > 60.0 (>58); GLUCOSE, FASTING 96 MG/DL (70-100); SODIUM LEVEL 142 MEQ/L (136-145)
[2022-05-24 13:45] LABS: ALBUMIN 3.9 GM/DL (3.2-5.2); ALT/SGPT 28 U/L (12-78); BILIRUBIN,TOTAL 0.5 MG/DL (0.2-1.0); CALCIUM LEVEL 9.5 MG/DL (8.5-10.1); COMPLEMENT C3 108 MG/DL (90-180); COMPLEMENT C4 28 MG/DL (10-40); TOTAL PROTEIN 7.1 GM/DL (6.4-8.2)
[2022-05-27 12:11] LABS: ANTI DS-DNA AB Negative (Negative)
== END ==
LOC: M SFHCRHEU 10:01
PROVIDERS: ATTEND Internal Medicine Rheumatology
DX: R76.8 Other specified abnormal immunological findings in serum (principal); M35.3 Polymyalgia rheumatica; E06.3 Autoimmune thyroiditis; Z72.0 Tobacco use

== ENCOUNTER → 2022-09-25 | Outpatient (REF) | payer MEDICARE, MEDICAID | LOC: M SFHCDERM 14:24 | PROVIDERS: ATTEND Dermatology | DX: L90.5 Scar conditions and fibrosis of skin (principal) ==